=== PATIENT | male | born 1985 | race Hispanic/Latino ===

== ENCOUNTER 2019-01-13 19:08 | Inpatient (IN) | payer OTHER ==
[~2019-01-13] VITALS: Ht 182.9 cm; Wt 125.7 kg
--- OUTSIDE RECORDS SUMMARY | 2019-01-13 19:11 | XMS REPORT | Summary of Care ---
Author Author [facility] Organization [facility] Address Unknown Phone Unavailable Encounter NATALIE Gallardo(OSIEL) [id number] Date(s): 05/06/17 - 05/06/17 [facility] [address], [address] [place] [address]- [phone] Discharge Disposition: Home or Self Care Attending Physician: Joycelyn Marroquin MD Vital Signs Most recent to 1 oldest [Reference Range]: Height 182.88 cm (05/06/17 10:18 AM) Temperature Oral 98.7 DegF [96.4-99.1 DegF] (05/06/17 10:18 AM) Blood Pressure 159/105 mmHg [90-140/60-90 mmHg] *HI* (05/06/17 10:18 AM) Respiratory Rate 14 BRMIN [14-20 BRMIN] (05/06/17 10:18 AM) Peripheral Pulse 64 bpm Rate [60-100 bpm] (05/06/17 10:18 AM) Weight 127.273 kg (05/06/17 10:18 AM) Body Mass Index 38.05 m2 (05/06/17 10:18 AM) Problem List Condition Effective Dates Status Health Status Informant Benign essential Active HTN(Confirmed) Low serum vitamin Active D(Confirmed) 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(Confirmed ) Hyperlipidemia, Active mixed(Confirmed) Obesity(Confirmed) Active Annual physical Active exam(Confirmed) Thyroid disorder Active screen(Confirmed) Allergies, Adverse Reactions, Alerts Substance Reaction Severity Status NKDA Active Medications No Known Medications Results No data available for this section Immunizations Given and Recorded Vaccine Date Status Refusal Reason influenza virus vaccine, inactivated 05/06/17 Given influenza virus vaccine, inactivated 04/19/16 Given Procedures Procedure Date Related Diagnosis Body Site Diabetic retinopathy screening1 12/2016 1No retinopathy Social History Social History Type Response Substance Abuse Use: None. IV drug use: No. Drug use interferes with work/home: No. Ready to change: No. Household substance abuse concerns: No. Cessation Education Provided: No. Alcohol Current, Type Beer. Frequency: 1-2 times per year. Previous treatment: None. Alcohol use interferes with work or home: No. Drinks more than intended: No. Others hurt by drinking: No. Ready to change: No. Household alcohol concerns: No. Smoking Status Former smoker; Exposure to Tobacco Smoke None; Cigarette Smoking Last 365 Days No; Reg Smoking Cessation Counseling No Assessment and Plan No data available for this section
--- OUTSIDE RECORDS SUMMARY | 2019-01-13 19:11 | XMS REPORT | Summary of Care ---
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 Allergies, Adverse Reactions, Alerts No Known Medication Allergies Medications No data available for this section Results No data available for this section Immunizations Given and Recorded Vaccine Date Status Refusal Reason influenza virus vaccine, inactivated1 04/10/18 Given influenza virus vaccine, inactivated 05/06/17 Given influenza virus vaccine, inactivated 04/19/16 Given 1Result Comment: Patient waited 15 min with no reaction. Procedures Procedure Date Related Diagnosis Body Site Status Diabetic retinopathy screening1 12/2016 Completed Cholecystectomy Completed 1No retinopathy Social History Social History Type [...] Days No; Reg Smoking Cessation Counseling No entered on: 05/11/18 Assessment and Plan No data available for this section
--- OUTSIDE RECORDS SUMMARY | 2019-01-13 19:11 | XMS REPORT | Continuity of Care Document ---
Author Author [employer] Organization [employer] Address Unknown Phone Unavailable Care Team Providers Care Military Administrative Technician Name Role Phone IS Decisions Information [facility] Unavailable Unavailable Problems Problem Status Onset Date Classification Date Reported Comments Source E11.42 TYPE 2 DIABETES MELLITUS WITH ANGELITO Active 12/29/2017 [facility] Benign essential HTN Active Problem 11/29/2018 [facility] Low serum vitamin D Active Problem 11/29/2018 [facility] DM type 2 with diabetic peripheral neuropathy Active Problem 11/29/2018 [facility] Hyperlipidemia, mixed Active Problem 11/29/2018 [facility] Obesity Active Problem 11/29/2018 [facility] Thyroid disorder screen Active Problem 11/29/2018 [facility] Diabetes mellitus type 21 Active Problem 11/29/2018 Automatically added by Discern Expert with order of Add Problem Diabetes Type II on August 18, 2017 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 [facility] Hemorrhoids Active Problem 11/29/2018 [facility] Upper respiratory infection, viral Active Problem 11/29/2018 [facility] Hospital discharge follow-up Active Problem 11/29/2018 [facility] Medications Medication Details Route Status Patient Instructions Ordering Provider Order Date Source glimepiride 2 mg oral tablet =1 tab, PO, BID, # 180 tab, Refill(s) 1, Pharmacy: [facility] [id number] [facility] Active 06/30/[facility] atorvastatin 10 mg oral tablet 10 mg=1 tab, PO, Bedtime, # 90 tab, 1 Refill(s), Pharmacy: [facility] [id number] [facility] Active 04/10/2018 [facility] Fenofibrate 90 MG Oral Capsule 90 mg=1 cap, PO, Daily, # 90 cap, 1 Refill(s), Pharmacy: [facility] [id number] [facility] Active 04/10/2018 [facility] Metformin hydrochloride 1000 MG Oral Tablet 1,000 mg=1 tab, PO, BID-Meals, # 180 tab, 1 Refill(s) Active 04/10/2018 [facility] Mini-Pen [place] Ultra Fine 3/16 in, 31 gauge See Instructions, 4 boxes with 90 needles each box He injects 4 times a day with Tresiba Pen and Novolog Pen, # 4 box, 1 Refill(s) Active 01/02/2018 [facility] Insulin Syringes U 30 31 ga (ultra fine) 1 syr, INJ, QID- Before Meals, FOR NOVOLOG PEN AND TRESIBA PEN, # 360 syr, 1 Refill(s) Inactive 01/02/2018 [facility] glimepiride 2 mg oral tablet 2 mg=1 tab, PO, BID, # 180 tab, 1 Refill(s), Pharmacy: [facility] [id number] [facility] No Longer Active 01/02/2018 [facility] DME Addition #1 See Instructions, LANCETS TO CHECK HIS SUGARS FOUR TIMES A DAY ONE TOUCH, # 300 ea, 3 Refill(s) Active 12/24/2017 [facility] 3 ML Insulin, Aspart, Human 100 UNT/ML Cartridge [NovoLog] 5 unit, SUB-Q, TID, Before meals, # 7 ea, 1 Refill(s) Active 12/24/2017 [facility] lisinopril 20 mg oral tablet 20 mg=1 tab, PO, Daily, # 90 tab, 1 Refill(s) Active 12/24/2017 [facility] atorvastatin 40 mg oral tablet 40 mg=1 tab, PO, Bedtime, # 90 tab, 1 Refill(s) Active 12/24/2017 [facility] Fenofibrate 150 MG Oral Capsule 150 mg=1 cap, PO, Daily, # 90 cap, 1 Refill(s) Active 12/24/2017 [facility] lisinopril 20 mg oral tablet 20 mg=1 tab, PO, Daily, # 90 tab, 1 Refill(s) Inactive 12/24/2017 [facility] atorvastatin 40 mg oral tablet 40 mg=1 tab, PO, Bedtime, # 90 tab, 1 Refill(s) Inactive 12/24/2017 [facility] Vascepa 2 gm, PO, BID, 0 Refill(s) Active 12/24/2017 [facility] 3 ML insulin degludec 200 UNT/ML Pen Injector [Tresiba] 20 unit, SUB-Q, Daily, 0 Refill(s) Active 12/24/2017 [facility] Fenofibrate 160 MG Oral Tablet See Instructions, # 90 tab, TAKE 1 TABLET BY MOUTH DAILY, Pharmacy: [facility] [id number] [facility] Active 09/03/2017 [facility] Hemorrhoidal HC 25 mg rectal suppository 25 mg=1 supp, KS, BID, X 7 day, # 14 supp, 0 Refill(s) No Longer Active 08/18/2017 [facility] Mineral Oil 0.14 MG/MG / Petrolatum 0.719 MG/MG / Phenylephrine Hydrochloride 0.0025 MG/MG Rectal Ointment 1 appl, KS, BID, X 7 day, # 57 gm, 1 Refill(s) No Longer Active 08/18/2017 [facility] Hydrochlorothiazide 25 MG Oral Tablet 25 mg=1 tab, PO, Daily, # 90 tab, 1 Refill(s), [id number] Active 07/30/2017 [facility] benzonatate 200 mg oral capsule 200 mg=1 cap, PO, TID, X 10 day, # 30 cap, 0 Refill(s), Pharmacy: [facility]/pharmacy #[id number] No Longer Active 07/30/2017 [facility] ibuprofen 800 mg oral tablet 800 mg=1 tab, PO, Q8H, PRN Pain, Take with food, X 10 day, # 30 tab, 0 Refill(s), Pharmacy: [facility]/pharmacy #[id number] No Longer Active 07/30/2017 [facility] Glipizide 10 MG Oral Tablet 10 mg=1 tab, PO, BID-Before Meals, # 180 tab, 1 Refill(s), Pharmacy: [facility]/pharmacy #[id number] Active 07/30/2017 [facility] lisinopril 40 mg oral tablet 40 mg=1 tab, PO, Daily, # 90 tab, 1 Refill(s), Pharmacy: [facility]/pharmacy #[id number] Active 05/16/2017 [facility] Ergocalciferol 79756 UNT Oral Capsule 50,000 IntlUnit=1 cap, PO, Q-M and W, # 24 cap, 2 Refill(s), Pharmacy: [facility]/pharmacy #[id number] Active 05/16/2017 [facility] lisinopril 10 mg oral tablet 10 mg=1 tab, PO, Daily, # 90 tab, 1 Refill(s), [id number] Inactive 05/16/2017 [facility] metFORMIN 1000 mg oral tablet, extended release 1,000 mg=1 tab, PO, BID, # 180 tab, 1 Refill(s), [id number] Active 05/16/2017 [facility] Fenofibrate 160 MG Oral Tablet 160 mg=1 tab, PO, Daily, # 90 tab, 1 Refill(s), [id number] Active 05/16/2017 [facility] icosapent ethyl 1000 MG Oral Capsule [Vascepa] 2 gm=2 cap, PO, BID, # 360 cap, 1 Refill(s), [id number] Active 05/16/2017 [facility] Allergies, Adverse Reactions, Alerts Substance Category Reaction Severity Reaction type Status Date Reported Comments Source No Known Medication Allergies Assertion Drug allergy [facility] Immunizations Immunization Date Given Site Status Last Updated Comments Source influenza virus vaccine, inactivated<sup>1</sup> 04/10/2018 Right Deltoid completed [place] Result Comment: Patient waited 15 min with no reaction. [facility] influenza virus vaccine, inactivated 05/06/2017 Left Deltoid completed [facility] influenza virus vaccine, inactivated 04/19/2016 Right Deltoid completed [facility] Results No Data Provided for This Section Pathology Reports No Data Provided for This Section Diagnostic Reports No Data Provided for This Section Consultation Notes No Data Provided for This Section Discharge Summaries No Data Provided for This Section History and Physicals No Data Provided for This Section Vital Signs Vital Sign Value Date Comments Source BMI Calculated 37.37 05/11/2018 [facility] Weight 125 05/11/2018 [facility] Systolic (mm Hg) 134 05/11/2018 [facility] Diastolic (mm Hg) 92 05/11/2018 [facility] Height 182.88 cm 05/11/2018 [facility] Respitory Rate 16 05/11/2018 [facility] Heart Rate 85 05/11/2018 [facility] Height 182.88 cm 04/10/2018 [facility] Weight 121.818 04/10/2018 [facility] BMI Calculated 36.42 04/10/2018 [facility] Temperature Oral (F) 98.3 F 04/10/2018 [facility] Respitory Rate 14 04/10/2018 [facility] Heart Rate 69 04/10/2018 [facility] Systolic (mm Hg) 136 04/10/2018 [facility] Diastolic (mm Hg) 85 04/10/2018 [facility] BMI Calculated 36.47 01/02/2018 [facility] Heart Rate 86 01/02/2018 [facility] Respitory Rate 14 01/02/2018 [facility] Temperature Oral (F) 98.8 F 01/02/2018 [facility] Weight 121.989 01/02/2018 [facility] Systolic (mm Hg) 150 01/02/2018 [facility] Diastolic (mm Hg) 86 01/02/2018 [facility] Height 182.88 cm 01/02/2018 [facility] Weight 120.966 12/24/2017 [facility] Height 182.88 cm 12/24/2017 [facility] BMI Calculated 36.17 12/24/2017 [facility] Respitory Rate 14 12/24/2017 [facility] Heart Rate 82 12/24/2017 [facility] Systolic (mm Hg) 145 12/24/2017 [facility] Diastolic (mm Hg) 89 12/24/2017 [facility] Temperature Oral (F) 98.7 F 12/24/2017 [facility] BMI Calculated 35.34 08/18/2017 [facility] Weight 118.182 08/18/2017 [facility] Height 182.88 cm 08/18/2017 [facility] Respitory Rate 14 08/18/2017 [facility] Heart Rate 100 08/18/2017 [facility] Systolic (mm Hg) 131 08/18/2017 [facility] Diastolic (mm Hg) 94 08/18/2017 [facility] Temperature Oral (F) 99.8 F 08/18/2017 [facility] Weight 122.898 07/30/2017 [facility] BMI Calculated 36.75 07/30/2017 [facility] Height 182.88 cm 07/30/2017 [facility] Heart Rate 109 07/30/2017 [facility] Respitory Rate 14 07/30/2017 [facility] Temperature Oral (F) 98.7 F 07/30/2017 [facility] Systolic (mm Hg) 149 07/30/2017 [facility] Diastolic (mm Hg) 96 07/30/2017 [facility] Height 182.88 cm 05/16/2017 [facility] Weight 129.261 05/16/2017 [facility] BMI Calculated 38.65 05/16/2017 [facility] Systolic (mm Hg) 149 05/16/2017 [facility] Diastolic (mm Hg) 88 05/16/2017 [facility] Temperature Oral (F) 100.0 F 05/16/2017 [facility] Respitory Rate 14 05/16/2017 [facility] Heart Rate 90 05/16/2017 [facility] BMI Calculated 38.05 05/06/2017 [facility] Weight 127.273 05/06/2017 [facility] Height 182.88 cm 05/06/2017 [facility] Temperature Oral (F) 98.7 F 05/06/2017 [facility] Systolic (mm Hg) 159 05/06/2017 [facility] Diastolic (mm Hg) 105 05/06/2017 [facility] Respitory Rate 14 05/06/2017 [facility] Heart Rate 64 05/06/2017 [facility] Encounters Location Location Details Encounter Type Encounter Number Reason For Visit Attending Provider ADM Date DC Date Status Source Outpatient [id number] JOYCELYN STOCKTON 04/19/2016 Active [facility] Outpatient [id number] JOYCELYN STOCKTON 04/26/2016 Active [facility] Outpatient [id number] JOYCELYN STOCKTON 05/30/2016 Active [facility] Outpatient [id number] JOYCELYN STOCKTON 08/02/2016 Active [facility] Outpatient [id number] JOYCELYN STOCKTON 11/01/2016 Active [facility] Outpatient [id number] JOYCELYN STOCKTON 02/21/2017 Active [facility] Outpatient [id number] JOYCELYN STOCKTON 05/06/2017 Active [facility] Outpatient [id number] Joycelyn Buchanan 05/06/2017 05/07/2017 [facility] Outpatient [id number] JOYCELYN STOCKTON 05/16/2017 Active [facility] Outpatient [id number] Joycelyn Buchanan 05/16/2017 05/17/2017 [facility] Outpatient [id number] JOE RIOS 06/06/2017 Active [facility] Ambulatory Pre-Reg [id number] Joe Rios 06/06/2017 06/06/2017 [facility] Outpatient [id number] JOYCELYN STOCKTON 07/30/2017 Active [facility] Outpatient [id number] Joycelyn Buchanan 07/30/2017 07/31/2017 [facility] Outpatient [id number] JOYCELYN STOCKTON 08/18/2017 Active [facility] Outpatient [id number] Joycelyn Buchanan 08/18/2017 08/19/2017 [facility] Primary [facility] Phone Message [id number] 08/19/2017 08/21/2017 [facility] Outpatient [id number] JOYCELYN STOCKTON 09/12/2017 Active [facility] Ambulatory Pre-Reg [id number] Joycelyn Buchanan 09/12/2017 09/12/2017 [facility] Outpatient [id number] JOE WARNERANDER 12/05/2017 Active [facility] Ambulatory Pre-Reg [id number] Joe Warnerander 12/05/2017 12/05/2017 [facility] Outpatient [id number] JOYCELYN STOCKTON 12/24/2017 Active [facility] Outpatient [id number] Joycelyn Buchanan 12/24/2017 12/25/2017 [facility] Outpatient [id number] JOYCELYN STOCKTON 12/25/2017 Active [facility] Ambulatory Pre-Reg [id number] Joycelyn Buchanan 12/25/2017 12/25/2017 [facility] Outpatient [id number] JOYCELYN STOCKTON 01/02/2018 Active [facility] Outpatient [id number] Joycelyn Buchanan 01/02/2018 01/03/2018 [facility] [id number] Joycelyn Buchanan 01/16/2018 01/16/2018 [facility] Outpatient [id number] JOYCELYN STOCKTON 04/10/2018 Active [facility] Outpatient [id number] Joycelyn Buchanan 04/10/2018 04/11/2018 [facility] Outpatient [id number] JOYCELYN STOCKTON 05/06/[address] [facility] Ambulatory Pre-Reg [id number] Joycelyn Avilesshanelopez Buchanan 05/06/2018 05/06/2018 [facility] Outpatient [id number] JOYCELYN AVILESJOHAN 05/11/[address] [facility] Outpatient [id number] Joycelyn Buchanan 05/11/2018 05/12/2018 [facility] Outpatient [id number] JOYCELYN MAHIN 08/07/2018 [facility] Procedures Procedure Code Date Perfomer Comments Source Diabetic retinopathy screening<sup>1</sup> 170338931 12/14/2016 [facility] retinopathy [facility] Diabetic retinopathy screening<sup>1</sup> [id number] 12/14/2016 No retinopathy [facility] Cholecystectomy [id number] [facility] Cholecystectomy [id number] [facility] Assessment and Plan No Data Provided for This Section Plan of Care No Data Provided for This Section Social History Social History Date Source Social History TypeResponse Substance Abuse Use: None. IV drug use: [...] Smoking Cessation Counseling No entered on: 05/11/18 08/02/2016 [facility] Social History TypeResponse Substance Abuse Use: None. IV drug use: [...] Smoking Cessation Counseling No entered on: 05/11/18 08/02/2016 [facility] Family History No Data Provided for This Section Advance Directives No Data Provided for This Section Functional Status No Data Provided for This Section
--- OUTSIDE RECORDS SUMMARY | 2019-01-13 19:11 | XMS REPORT | Summary of Care ---
Author Author [facility] Organization [facility] Address Unknown Phone Unavailable Encounter NATALIE Gallardo(OSIEL) [id number] Date(s): 05/16/17 - 05/16/17 [facility] [address], [address] [place] [address]- [phone] Discharge Disposition: Home or Self Care Attending Physician: Joycelyn Marroquin MD Vital Signs Most recent to 1 oldest [Reference Range]: Height 182.88 cm (05/16/17 12:20 PM) Temperature Oral 100.0 DegF [96.4-99.1 DegF] *HI* (05/16/17 12:20 PM) Blood Pressure 149/88 mmHg [90-140/60-90 mmHg] *HI* (05/16/17 12:20 PM) Respiratory Rate 14 BRMIN [14-20 BRMIN] (05/16/17 12:20 PM) Peripheral Pulse 90 bpm Rate [60-100 bpm] (05/16/17 12:20 PM) Weight 129.261 kg (05/16/17 12:20 PM) Body Mass Index 38.65 m2 (05/16/17 12:20 PM) Problem List Condition Effective Dates Status Health Status Informant Benign essential Active HTN(Confirmed) Low serum vitamin Active D(Confirmed) 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(Confirmed ) Hyperlipidemia, Active mixed(Confirmed) Obesity(Confirmed) Active Annual physical Active exam(Confirmed) Thyroid disorder Active screen(Confirmed) Allergies, Adverse Reactions, Alerts Substance Reaction Severity Status NKDA Active Medications ergocalciferol 50,000 intl units oral capsule 50,000 IntlUnit=1 cap, PO, Q-M and W, # 24 cap, 2 Refill(s), Pharmacy: [id number] Start Date: 05/16/17 Stop Date: 01/23/18 Status: Ordered fenofibrate 160 mg oral tablet 160 mg=1 tab, PO, Daily, # 90 tab, 1 Refill(s), [id number] Start Date: 05/16/17 Stop Date: 11/12/17 Status: Ordered lisinopril 10 mg oral tablet 10 mg=1 tab, PO, Daily, # 90 tab, 1 Refill(s), [id number] Start Date: 05/16/17 Stop Date: 05/16/17 Status: Discontinued lisinopril 40 mg oral tablet 40 mg=1 tab, PO, Daily, # 90 tab, 1 Refill(s), [id number] Start Date: 05/16/17 Stop Date: 11/12/17 Status: Ordered metFORMIN 1000 mg oral tablet, extended release 1,000 mg=1 tab, PO, BID, # 180 tab, 1 Refill(s), [id number] Start Date: 05/16/17 Stop Date: 11/12/17 Status: Ordered Vascepa 1 g oral capsule 2 gm=2 cap, PO, BID, # 360 cap, 1 Refill(s), [id number] Start Date: 05/16/17 Stop Date: 11/12/17 Status: Ordered Results No data available for this section [...]
--- OUTSIDE RECORDS SUMMARY | 2019-01-13 19:11 | XMS REPORT | Summary of Care ---
Author Author [facility] Organization [facility] Address Unknown Phone Unavailable Encounter HQ Ewantr_alishi(FIN) [id number] Date(s): 08/19/17 - 08/20/17 [facility] [address], [address] [place] [address]- [phone] Vital Signs No data available for this section Problem List Condition Effective Dates Status Health Status Informant Benign essential Active HTN(Confirmed) Low serum vitamin Active D(Confirmed) Diabetes mellitus Active type 2(Confirmed)1 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(Confirmed ) Hemorrhoids(Confirme Active d) Hyperlipidemia, Active mixed(Confirmed) Obesity(Confirmed) Active Annual physical Active exam(Confirmed) Thyroid disorder Active screen(Confirmed) Upper respiratory Active infection, viral(Confirmed) 1Automatically added by Discern Expert with order of Add Problem Diabetes Type II on August 18, 2017 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 Allergies, Adverse Reactions, Alerts Substance Reaction Severity Status NKDA Active Medications No data available for this section Results No data available for this section Immunizations Given and Recorded Vaccine Date Status Refusal Reason influenza virus vaccine, inactivated 05/06/17 Given influenza virus vaccine, inactivated 04/19/16 Given Procedures Procedure Date Related Diagnosis Body Site Status Diabetic retinopathy screening1 12/2016 Completed 1No retinopathy Social History Social History [...] Reg Smoking Cessation Counseling No entered on: 08/18/17 Assessment and Plan No data available for this section
--- OUTSIDE RECORDS SUMMARY | 2019-01-13 19:11 | XMS REPORT | Clinical Summary ---
Author Author [facility] Address Unknown Phone Unavailable Care Team Providers Care Hand Potter Name Role Phone PCP Unavailable Allergies No Known Allergies Medications End Date Status Medication Sig Dispensed Refills Start Date Active lisinopril Take 40 mg by 0 (PRINIVIL,ZESTRIL) 40 MG mouth daily. tablet Active fenofibrate Take 160 mg 0 (TRIGLIDE,LOFIBRA) 160 MG by mouth tablet daily. Active insulin aspart U-100 Inject 0.05 4.5 mL 2 (NOVOLOG) 100 unit/mL mLs (5 Units 8 InPnIndications: Type 2 total) diabetes mellitus treated subcutaneousl with insulin ([facility]) y 3 (three) times daily before meals. Active needles, insulin Inject 1 1 box 11 disposable (INSULIN PEN Syringe 8 NEEDLES) NdleIndications: subcutaneousl Type 2 diabetes mellitus y 4 (four) treated with insulin times daily. ([facility]) Active lancets MiscIndications: Use as 200 each 4 Type 2 diabetes mellitus directed to 8 treated with insulin check blood ([facility]) sugar.. Active blood sugar diagnostic Check blood 200 strip 4 (ONETOUCH ULTRA TEST) sugar five 8 StrpIndications: Type 2 times daily diabetes mellitus treated as directed.. with insulin ([facility]) Active insulin degludec 100 Inject 20 2 Syringe 2 unit/mL (3 mL) Units 8 InPnIndications: Type 2 subcutaneousl diabetes mellitus treated y daily. with insulin ([facility]) Active atorvastatin (LIPITOR) 40 Take 1 tablet 90 tablet 3 MG tabletIndications: (40 mg total) 8 Type 2 diabetes mellitus by mouth treated with insulin nightly. ([facility]), Dyslipidemia Active omega-3 fatty acids-fish Take 2 0 oil 340-1,000 mg Cap per capsules (2 g 8 capsuleIndications: total) by Hypertriglyceridemia mouth 2 (two) times daily. 12/19/2018 blood-glucose meter Use as 1 each 0 (GLUCOSE MONITORING KIT) instructed. 8 kitIndications: Type 2 diabetes mellitus treated with insulin ([facility]) Active Problems Problem Noted Date Hypertriglyceridemia 12/19/2017 Metabolic syndrome 12/19/2017 Class 2 obesity in adult 12/19/2017 High anion gap metabolic acidosis 12/17/2017 Lactic acidosis 12/17/2017 Hypokalemia 12/17/2017 Diabetic ketoacidosis without coma associated with type 2 diabetes mellitus 12/16/2017 Social History Date Tobacco Use Types Packs/Day Years Used Light Tobacco Smoker Smokeless Tobacco: Current User Alcohol Use Drinks/Week oz/Week Comments No Sex Assigned at Date Recorded Not on file Industry Job Start Date Occupation Not on file Not on file Not on file Travel End Travel History Travel Start No recent travel history available. Last Filed Vital Signs Not on file Plan of Treatment Not on file Results Not on fileafter 01/12/2018 Insurance Payer Benefit Subscriber ID Type Phone Address Plan / Group BLUE CROSS/BLUE SHIELD BCBS PPO xxxxxxxxxxxx PPO [phone] [address] [place] [address] CHOICE Advance Directives For more information, please contact: [facility] [address] [place] [address] Date Inactivated Comments Code Status Date Activated 12/19/2017 1:23 PM Full Code 12/16/2017 8:01 PM This code status was determined by: Patient
--- OUTSIDE RECORDS SUMMARY | 2019-01-13 19:11 | XMS REPORT | Summary of Care ---
Author Author [facility] Organization [facility] Address Unknown Phone Unavailable Encounter NATALIE Gallardo(OSIEL) [id number] Date(s): 07/30/17 - 07/30/17 [facility] [address], [address] [place] [address]- [phone] Discharge Disposition: Home or Self Care Attending Physician: Joycelyn Marroquin MD Vital Signs Most recent to 1 oldest [Reference Range]: Height 182.88 cm (07/30/17 9:27 AM) Temperature Oral 98.7 DegF [96.4-99.1 DegF] (07/30/17 9:27 AM) Blood Pressure 149/96 mmHg [90-140/60-90 mmHg] *HI* (07/30/17 9:27 AM) Respiratory Rate 14 BRMIN [14-20 BRMIN] (07/30/17 9:27 AM) Peripheral Pulse 109 bpm Rate [60-100 bpm] *HI* (07/30/17 9:27 AM) Weight 122.898 kg (07/30/17 9:27 AM) Body Mass Index 36.75 m2 (07/30/17 9:27 AM) Problem List Condition Effective Dates Status [...] 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 Allergies, Adverse Reactions, Alerts Substance Reaction Severity Status NKDA Active Medications benzonatate 200 mg oral capsule 200 mg=1 cap, PO, TID, X 10 day, # 30 cap, 0 Refill(s), [id number] Start Date: 07/30/17 Stop Date: 08/09/17 Status: Completed glipiZIDE 10 mg oral tablet 10 mg=1 tab, PO, BID-Before Meals, # 180 tab, 1 Refill(s), [id number] Start Date: 07/30/17 Stop Date: 01/26/18 Status: Ordered hydrochlorothiazide 25 mg oral tablet 25 mg=1 tab, PO, Daily, # 90 tab, 1 Refill(s), [id number] Start Date: 07/30/17 Stop Date: 01/26/18 Status: Ordered ibuprofen 800 mg oral tablet 800 mg=1 tab, PO, Q8H, PRN Pain, Take with food, X 10 day, # 30 tab, 0 Refill(s) , [id number] Start Date: 07/30/17 Stop Date: 08/09/17 Status: Completed Results No data available for this section [...]
--- OUTSIDE RECORDS SUMMARY | 2019-01-13 19:11 | XMS REPORT | Clinical Summary ---
Author Author [facility] Address Unknown Phone Unavailable Care Team Providers Care Corrugator Supervisor Name Role Phone Asked, No Pcp PCP Unavailable Allergies No Known Allergies Medications End Date Status Medication Sig Dispensed Refills Start Date 02/12/2019 Active famotidine (PEPCID) 20 MG Take 1 tablet 60 tablet 0 tablet (20 mg total) 9 by mouth 2 (two) times a day for 30 days. Active ondansetron ODT (ZOFRAN Take 1 tablet 20 tablet 0 ODT) 4 MG disintegrating (4 mg total) 9 tablet by mouth every 8 (eight) hours as needed for nausea or vomiting for up to 30 doses. Active Problems Not on file Encounters Care Team Description Date Type Specialty Kirt Roy DO Hyperglycemia (Primary Dx); Dehydration; Ketosis (HCC) 01/13/2019 Emergency Emergency Medicine after 01/12/2018 Social History Date Tobacco Use Types Packs/Day Years Used Never Assessed Sex Assigned at Date Recorded Not on file Industry Job Start Date Occupation Not on file Not on file Not on file Travel End Travel History Travel Start No recent travel history available. Last Filed Vital Signs Time Taken Vital Sign Reading 01/13/2019 1:05 PM CDT Blood Pressure 163/95 01/13/2019 1:05 PM CDT Pulse 87 01/13/2019 1:05 PM CDT Temperature 37.6 C (99.6 F) 01/13/2019 1:05 PM CDT Respiratory Rate 18 01/13/2019 1:05 PM CDT Oxygen Saturation 98% - Inhaled Oxygen - Concentration 01/13/2019 1:10 PM CDT Weight 122 kg (270 lb) 01/13/2019 1:10 PM CDT Height 182.9 cm (6') 01/13/2019 1:10 PM CDT Body Mass Index 36.62 Plan of Treatment Not on file Procedures Comments Procedure Name Priority Date/Time Associated Diagnosis BETA HYDROXYBUTYRATE STAT 01/13/2019 3:07 PM CDT VENOUS BLOOD GAS STAT 01/13/2019 3:07 PM CDT ESTIMATED GFR STAT 01/13/2019 1:40 PM CDT LIPASE LEVEL STAT 01/13/2019 1:40 PM CDT COMPREHENSIVE METABOLIC STAT 01/13/2019 PANEL 1:40 PM CDT CBC WITH PLATELET AND STAT 01/13/2019 DIFFERENTIAL 1:40 PM CDT URINALYSIS SCREEN AND STAT 01/13/2019 MICROSCOPY, WITH REFLEX 1:27 PM CDT TO CULTURE URINE CULTURE STAT 01/13/2019 1:27 PM CDT after 01/12/2018 Results * Beta hydroxybutyrate (01/13/2019 3:07 PM CDT) Beta 3.54 (H) 0.02 - 0.27 mmol/L [facility] Specimen Blood Performing Organization Address City/State/Zipcode Phone Number [facility] DEPARTMENT OF [address] [place] [address] PATHOLOGY AND GENOMIC MEDICINE [facility] [address] [place] [address] HOSPITAL * Venous blood gas (01/13/2019 3:07 PM CDT) Projector Booth Operator [id number] [facility] O2 therapy ROOM [facility] pH, venous 7.344 7.320 - 7.420 units [facility] pCO2, venous 45.9 45.0 - 51.0 mmHg [facility] pO2, venous 16.4 (L) 25.0 - 40.0 mmHg [facility] O2 saturation, 24.8 (LL) 40.0 - 70.0 % AN[place]ELA venous Comment: [facility] Results called to and read [place] back by [facility] (name/location) at07/ 15:16 (date/time) by _[facility]. Base excess, -0.7 -2.0 - 2.0 mEq/L [place] venous [facility] Bicarbonate 25.0 21.0 - 28.0 mEq/L [facility] O2 content 5.3 VOL% [facility] FiO2, inspired 21.0 % ANGELA O2% [facility] Carboxyhemoglob 1.5 (H) 0.0 - 1.4 % ANGELA in Comment: [facility] Reference Ranges: [place] Carboxyhemoglobin [facility] Non smoker: 0.0 - 2.0% Smoker: 2.1 - 5.0% Heavy smoker: 5.1 - 9% Methemoglobin 1.3 (H) 0.0 - 1.0 % [facility] Hemoglobin, 15.7 14.0 - 18.0 g/dL ANGELA blood gas [facility] Specimen Blood Performing Organization Address City/[facility] Phone Number [facility] [address] [place] [phone] PATHOLOGY AND GENOMIC MEDICINE [address] * Estimated GFR (01/13/2019 1:40 PM CDT) Estimated GFR >=90 mL/min/1.73 m2 [place]ELA Comment: [facility] G1 >=90 Normal or high G2 60-89Mildly decreased [id number] Mildly to moderately decreased [id number] Moderately to severely decreased G4 15-29Severely decreased G5 <15Kidney failure The eGFR was calculated using the Chronic Kidney Disease Epidemiology Collaboration (CKD-EPI) equation. Interpretation is based on recommendations of the National Kidney Foundation-Kidney Disease Outcomes Quality Initiative (NKF-KDOQI) published in 2014. Specimen Plasma specimen Narrative Performed At SPECIMEN >4+ LIPEMIA HAD TO BE ULTRACENTRIFUGED [facility] DEPARTMENT OF PATHOLOGY AND GENOMIC MEDICINE Performing Organization Address City/State/Zipcode Phone Number [facility] [address] [facility] [place] [address] PATHOLOGY AND GENOMIC MEDICINE [facility] [place] [address] * CBC with platelet and differential (01/13/2019 1:40 PM CDT) WBC 12.1 (H) 4.2 - 11.0 k/uL [facility] RBC 4.86 4.04 - 5.86 m/uL [facility] HGB 15.6 13.0 - 17.3 g/dL [facility] HCT 42.3 34.0 - 45.0 % [facility] MCV 87.0 80.0 - 98.0 fL [facility] MCH 32.1 27.0 - 34.0 pg [facility] MCHC 36.9 (H) 31.5 - 36.5 g/dL [facility] RDW - SD 39.0 37.0 - 51.0 fL [facility] MPV 11.6 (H) 7.4 - 10.4 fL [facility] Platelet count 246 150 - 400 k/uL [facility] Nucleated RBC 0.00 /100 WBC [facility] Neutrophils 80.3 (H) 36.0 - 66.0 % [facility] Lymphocytes 12.1 (L) 24.0 - 44.0 % [facility] Monocytes 6.1 (H) 0.0 - 6.0 % [facility] Eosinophils 0.5 0.0 - 6.0 % [facility] Basophils 0.3 0.0 - 1.2 % [facility] Immature 0.7 0.0 - 1.0 % ANGELA granulocytes [facility] Specimen Blood Performing Organization Address City/State/Zipcode Phone Number [facility] DEPARTMENT OF [facility] [place] [address] PATHOLOGY AND GENOMIC MEDICINE [facility] [address] * Lipase level (01/13/2019 1:40 PM CDT) Pathologist [facility] Lipase 74 (H) 13 - 60 U/L [facility] Specimen Plasma specimen Narrative Performed At SPECIMEN >4+ LIPEMIA HAD TO BE ULTRACENTRIFUGED [facility] DEPARTMENT OF PATHOLOGY AND GENOMIC MEDICINE Performing Organization Address City/[facility]/Zipcode Phone Number [facility] DEPARTMENT OF [address] [place] [address] PATHOLOGY AND GENOMIC MEDICINE [place] [address] [place] [address] HOSPITAL * Comprehensive metabolic panel (01/13/2019 1:40 PM CDT) Sodium 132 (L) 135 - 150 mEq/L [facility] Potassium 4.2 3.5 - 5.0 mEq/L [facility] Chloride 91 (L) 98 - 112 mEq/L [facility] CO2 18 (L) 24 - 31 mmol/L [facility] Anion gap 23@ANIO (H) 7 - 15 mEq/L [facility] BUN 9 7 - 18 mg/dL [facility] Creatinine 0.80 0.70 - 1.20 mg/dL [facility] Glucose 259 (H) 65 - 100 mg/dL [facility] Calcium 10.4 (H) 8.3 - 10.2 mg/dL [facility] Protein 8.4 (H) 6.3 - 8.3 g/dL [facility] Albumin 4.0 3.5 - 5.0 g/dL [facility] A/G ratio 0.9 0.7 - 3.8 [facility] Alkaline 62 0 - 129 U/L AN[place]ELA phosphatase [facility] AST 30 10 - 50 U/L [facility] ALT 27 5 - 50 U/L [facility] Total bilirubin 0.9 0.2 - 1.2 mg/dL [facility] Specimen Plasma specimen Narrative Performed At SPECIMEN >4+ LIPEMIA HAD TO BE ULTRACENTRIFUGED [facility] DEPARTMENT OF PATHOLOGY AND GENOMIC MEDICINE Performing Organization Address City/State/Zipcode Phone Number [facility] DEPARTMENT OF [address] [address] PATHOLOGY AND GENOMIC MEDICINE [facility] [address] [place] [address] HOSPITAL * Urinalysis screen and microscopy, with reflex to culture (01/13/2019 1:27 PM CDT) Specimen site Clean catch [facility] Color, UA Yellow [facility] Appearance, UA Clear [facility] Specific 1.036 (H) 1.001 - 1.035 ANGELA gravity, UA [facility] pH, UA 6.0 5.0 - 8.5 [facility] Protein, UA 2+ (A) Negative [facility] Glucose, UA 3+ (A) Negative [facility] Ketones, UA 2+ (A) Negative [facility] Bilirubin, UA Negative Negative [facility] Blood, UA Negative Negative [facility] Nitrite, UA Negative Negative [facility] Urobilinogen, Negative <2.0 [facility] Leukocyte Negative Negative ANGELA esterase, [facility] WBC, UA 1 0 - 1 /HPF [facility] RBC, UA 3 0 - 5 /HPF [facility] Bacteria, UA None seen None seen [facility] Yeast, UA None seen [facility] Yeast with None seen [facility]yphaeMETHODIST [facility] Granular casts, 3 (H) 0 - 1 /LPF [facility] Specimen Urine Performing Organization Address City/State/Zipcode Phone Number [facility] DEPARTMENT [facility] [place] [phone] PATHOLOGY AND GENOMIC MEDICINE [place] [address] [place] [address] HOSPITAL * Urine culture (01/13/2019 1:27 PM CDT) Urine culture SEE COMMENTComment: ANGELA Bacteriuria screen negative. [facility] Specimen Urine Performing Organization Address City/[facility]/Zipcode Phone Number [facility] OF [facility] [place] [phone] PATHOLOGY AND GENOMIC MEDICINE [facility] [place] [address] [place] [phone] HOSPITAL after 01/12/2018 Insurance Type Payer Benefit Subscriber ID Effective Phone Address Plan / Dates Group POS AETDEO MARKS xxxxxxxxxx 2019- [employer] Present [facility] POS Advance Directives Patient has advance care planning documents on file. For more information, elmira hampton contact: Yaakov Gilmore [address] [place] [address]
--- OUTSIDE RECORDS SUMMARY | 2019-01-13 19:11 | XMS REPORT | Summary of Care ---
Author Author [facility] Organization [facility] Address Unknown Phone Unavailable Encounter NATALIE Gallardo(OSIEL) [id number] Date(s): 05/11/18 - 05/11/18 [facility] [address] [address]- Discharge Disposition: Home or Self Care Attending Physician: Joycelyn Marroquin MD Vital Signs Most recent to 1 oldest [Reference Range]: Height 182.88 cm (05/11/18 10:53 AM) Blood Pressure 134/92 mmHg [90-140/60-90 mmHg] (05/11/18 10:53 AM) Respiratory Rate 16 BRMIN [14-20 BRMIN] (05/11/18 10:53 AM) Peripheral Pulse 85 bpm Rate [60-100 bpm] (05/11/18 10:53 AM) Weight 125 kg (05/11/18 10:53 AM) Body Mass Index 37.37 m2 (05/11/18 10:53 AM) Problem List Condition Effective Dates Status [...] 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 Allergies, Adverse Reactions, Alerts No Known Medication Allergies Medications No Known Medications Results No data [...]
--- OUTSIDE RECORDS SUMMARY | 2019-01-13 19:11 | XMS REPORT | Summary of Care ---
Author Author [facility] Organization [facility] Address Unknown Phone Unavailable Encounter NATALIE Gallardo(OSIEL) [id number] Date(s): 08/18/17 - 08/18/17 [facility] [address], [address] [place] [address]- [phone] Discharge Disposition: Home or Self Care Attending Physician: Joycelyn Marroquin MD Vital Signs Most recent to 1 oldest [Reference Range]: Height 182.88 cm (08/18/17 3:51 PM) Temperature Oral 99.8 DegF [96.4-99.1 DegF] *HI* (08/18/17 3:51 PM) Blood Pressure 131/94 mmHg [90-140/60-90 mmHg] (08/18/17 3:51 PM) Respiratory Rate 14 BRMIN [14-20 BRMIN] (08/18/17 3:51 PM) Peripheral Pulse 100 bpm Rate [60-100 bpm] (08/18/17 3:51 PM) Weight 118.182 kg (08/18/17 3:51 PM) Body Mass Index 35.34 m2 (08/18/17 3:51 PM) Problem List Condition Effective Dates Status [...] 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 Allergies, Adverse Reactions, Alerts Substance Reaction Severity Status NKDA Active Medications fenofibrate 160 mg oral tablet See Instructions, # 90 tab, TAKE 1 TABLET BY MOUTH DAILY, Pharmacy: [facility] [id number] [facility] Start Date: 09/03/17 Status: Ordered Hemorrhoidal HC 25 mg rectal suppository 25 mg=1 supp, GA, BID, X 7 day, # 14 supp, 0 Refill(s) Start Date: 08/18/17 Stop Date: 08/25/17 Status: Completed mineral oil/petrolatum/phenylephrine 14%-71.9%-0.25% rectal ointment 1 appl, GA, BID, X 7 day, # 57 gm, 1 Refill(s) Start Date: 08/18/17 Stop Date: 09/01/17 Status: Completed Results No data available for [...]
--- OUTSIDE RECORDS SUMMARY | 2019-01-13 19:11 | XMS REPORT | Summary of Care ---
Author Author [facility] Organization [facility] Address Unknown Phone Unavailable Encounter HQ Virgier_sascha(FIN) [id number] Date(s): 06/06/17 - 06/06/17 [facility] [address] [place], [place] [address] Attending Physician: Joe Rios MD Vital Signs No data available for [...]
--- OUTSIDE RECORDS SUMMARY | 2019-01-13 19:11 | XMS REPORT | Summary of Care ---
Author Author [facility] Organization [facility] Address Unknown Phone Unavailable Encounter NATALIE Gallardo(OSIEL) [id number] Date(s): 04/10/18 - 04/10/18 [facility] [address] [address]- Discharge Disposition: Home or Self Care Attending Physician: Joycelyn Marroquin MD Vital Signs Most recent to 1 oldest [Reference Range]: Height 182.88 cm (04/10/18 9:27 AM) Temperature Oral 98.3 DegF [96.4-99.1 DegF] (04/10/18 9:27 AM) Blood Pressure 136/85 mmHg [90-140/60-90 mmHg] (04/10/18 9:27 AM) Respiratory Rate 14 BRMIN [14-20 BRMIN] (04/10/18 9:27 AM) Peripheral Pulse 69 bpm Rate [60-100 bpm] (04/10/18 9:27 AM) Weight 121.818 kg (04/10/18 9:27 AM) Body Mass Index 36.42 m2 (04/10/18 9:27 AM) Problem List Condition Effective Dates [...] 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 Allergies, Adverse Reactions, Alerts No Known Medication Allergies Medications atorvastatin 10 mg oral tablet 10 mg=1 tab, PO, Bedtime, # 90 tab, 1 Refill(s), Pharmacy: [facility] [id number] [facility] Start Date: 04/10/18 Stop Date: 10/07/18 Status: Ordered fenofibrate 90 mg oral capsule 90 mg=1 cap, PO, Daily, # 90 cap, 1 Refill(s), Pharmacy: [facility] [id number] [facility] Start Date: 04/10/18 Stop Date: 10/07/18 Status: Ordered metFORMIN 1000 mg oral tablet 1,000 mg=1 tab, PO, BID-Meals, # 180 tab, 1 Refill(s) Start Date: 04/10/18 Status: Ordered Results No data available for [...]
--- OUTSIDE RECORDS SUMMARY | 2019-01-13 19:11 | XMS REPORT | Summary of Care ---
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 Allergies, Adverse Reactions, [...]
--- OUTSIDE RECORDS SUMMARY | 2019-01-13 19:11 | XMS REPORT | Summary of Care ---
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 Allergies, Adverse Reactions, Alerts Substance Reaction [...]
--- OUTSIDE RECORDS SUMMARY | 2019-01-13 19:12 | XMS REPORT | Summary of Care ---
Author Author [facility] Organization [facility] Address Unknown Phone Unavailable Encounter NATALIE Gallardo(OSIEL) [id number] Date(s): 01/02/18 - 01/02/18 [facility] [address], [address] [place] [address]- [phone] Discharge Disposition: Home or Self Care Attending Physician: Joycelyn Marroquin MD Vital Signs Most recent to 1 oldest [Reference Range]: Height 182.88 cm (01/02/18 11:17 AM) Temperature Oral 98.8 DegF [96.4-99.1 DegF] (01/02/18 11:17 AM) Blood Pressure 150/86 mmHg [90-140/60-90 mmHg] *HI* (01/02/18 11:17 AM) Respiratory Rate 14 BRMIN [14-20 BRMIN] (01/02/18 11:17 AM) Peripheral Pulse 86 bpm Rate [60-100 bpm] (01/02/18 11:17 AM) Weight 121.989 kg (01/02/18 11:17 AM) Body Mass Index 36.47 m2 (01/02/18 11:17 AM) Problem List Condition Effective Dates Status [...] Type II on August 18, 2017 16:29:17 [employer] with order ID: [id number] entered by Joycelyn Marroquin. Allergies, Adverse Reactions, Alerts Substance Reaction Severity Status NKDA Active Medications glimepiride 2 mg oral tablet 2 mg=1 tab, PO, BID, # 180 tab, 1 Refill(s), Pharmacy: [facility] [id number] [facility] Start Date: 01/02/18 Stop Date: 06/30/18 Status: Completed glimepiride 2 mg oral tablet =1 tab, PO, BID, # 180 tab, Refill(s) 1, Pharmacy: [facility] [id number] [facility] Start Date: 06/30/18 Status: Ordered Insulin Syringes U 30 31 ga (ultra fine) 1 syr, INJ, QID-Before Meals, FOR NOVOLOG PEN AND TRESIBA PEN, # 360 syr, 1 Refi ll(s) Start Date: 01/02/18 Stop Date: 01/02/18 Status: Discontinued Mini-Pen Central Ultra Fine /16 in, 31 gauge See Instructions, 4 boxes with 90 needles each box He injects 4 times a day with Tresiba Pen and Novolog Pen, # 4 box, 1 Refill(s) Start Date: 01/02/18 Status: Ordered Results No data available for [...]
--- OUTSIDE RECORDS SUMMARY | 2019-01-13 19:12 | XMS REPORT ---
[facility] Address Unknown Phone Unavailable Care Team Providers Care Streetcar Dispatcher Name Role Phone AUNG BLEDSOE Unavailable Unavailable Problems This patient has no known problems. Allergies, Adverse Reactions, Alerts This patient has no known allergies or adverse reactions. Medications This patient has no known medications. Results Test Description Test Time Test Comments Text Results Atomic Results Result Comments MISCELLANEOUS LAB ORDER 2017-12-29 10:26:00 SCAN RESULT (test abbr=[id number]) BLOOD [id number] 00:00:00* Test Item Value Reference Range Comments CULTURE (BEAKER) (test caew=0461) No growth in 5 days BLOOD [id number] 00:00:00* Test Item Value Reference Range Comments CULTURE (BEAKER) (test dhlm=6716) No growth in 5 days URINE [id number] 10:15:00* Test Item Value Reference Range Comments CULTURE (BEAKER) (test smee=1089) <10,000 col/mL skin fozia [id number] 08:24:00* Test Item Value Reference Range Comments TRIGLYCERIDES (BEAKER) (test pjiz=570) 2212 mg/dL Specimen slightly hemolyzed TRIGLYCERIDE REFERENCE RANGELow Risk <150Borderline Risk 150-199High Risk 200- 499Very High Risk >=500Specimen moderately lipemicPOCT-GLUCOSE [id number] 07:56:00* Test Item Value Reference Range Comments POC-GLUCOSE METER (BEAKER) (test hzke=0487) 188 mg/dL 70-110 TESTED AT [address] [address] COMPREHENSIVE METABOLIC [id number] 07:45:00* Test Item Value Reference Range Comments TOTAL PROTEIN (BEAKER) (test gdkq=382) 7.0 gm/dL 6.0-8.3 Specimen slightly hemolyzed ALBUMIN (BEAKER) (test pjuc=6734) 3.8 g/dL 3.5-5.0 Specimen slightly hemolyzed ALKALINE PHOSPHATASE (BEAKER) (test kbkj=475) 38 U/L 40-150 BILIRUBIN TOTAL (BEAKER) (test adqk=363) 0.7 mg/dL 0.2-1.2 Specimen slightly hemolyzed SODIUM (BEAKER) (test nvhb=369) 134 meq/L 136-145 POTASSIUM (BEAKER) (test ifid=161) 3.9 meq/L 3.5-5.1 Specimen slightly hemolyzed CHLORIDE (BEAKER) (test vlww=500) 101 meq/L 98-107 CO2 (BEAKER) (test sdwl=784) 16 meq/L 22-29 BLOOD UREA NITROGEN (BEAKER) (test awgh=846) 12 mg/dL 7-21 CREATININE (BEAKER) (test kzvp=112) 0.97 mg/dL 0.57-1.25 Specimen slightly hemolyzed GLUCOSE RANDOM (BEAKER) (test jhhu=152) 189 mg/dL 70-105 CALCIUM (BEAKER) (test gpjf=420) 9.2 mg/dL 8.4-10.2 AST (SGOT) (BEAKER) (test wjyq=718) 50 U/L 5-34 Specimen slightly hemolyzed ALT (SGPT) (BEAKER) (test jtka=754) 72 U/L 6-55 Specimen slightly hemolyzed EGFR (BEAKER) (test xuqg=3677) 90 mL/min/1.73 sq m ESTIMATED GFR IS NOT ACCURATE CREATININE CLEARANCE IN PREDICTING GLOMERULAR FILTRATION RATE. ESTIMATED GFR IS NOT APPLICABLE FOR DIALYSIS PATIENTS. Specimen moderately lipemicPOCT-GLUCOSE [id number] 21:45:00* Test Item Value Reference Range Comments POC-GLUCOSE METER (BEAKER) (test rzmf=9104) 183 mg/dL 70-110 TESTED AT [facility] [address] [facility] [address] POCT-GLUCOSE [id number] 18:41:00* Test Item Value Reference Range Comments POC-GLUCOSE METER (BEAKER) (test vetq=6613) 235 mg/dL 70-110 TESTED AT [facility] [address] [facility] [address] HEMOGLOBIN [id number] 17:16:00* Test Item Value Reference Range Comments HEMOGLOBIN A1C (BEAKER) (test ynlw=875) 10.6 % 4.3-6.1 POCT-GLUCOSE [id number] 12:16:00* Test Item Value Reference Range Comments POC-GLUCOSE METER (BEAKER) (test liln=6478) 247 mg/dL 70-110 TESTED AT [facility] [address] [facility] [address] [id number] 10:04:00* Test Item Value Reference Range Comments THYROID STIMULATING HORMONE (BEAKER) (test iyun=218) 2.96 uIU/mL 0.35-4.94 LACTIC ACID, VENOUS, WHOLE [id number] 09:26:00* Test Item Value Reference Range Comments LACTATE BLOOD VENOUS (2) (BEAKER) (test awyf=9670) 1.7 mmol/L 0.5-2.2 Specimen slightly hemolyzed Effective 10/18/2015: Units/Reference Range ChangeNew: 0.5-2.2 mmol/L Previous: 5 -20 mg/dLSpecimen moderately lipemicKETONE, [id number] 09:23:00* Test Item Value Reference Range Comments KETONES, BLOOD (BEAKER) (test xnkf=5166) 0.1 mmol/L <0.4 BLOOD GAS, [id number] 09:12:00* Test Item Value Reference Range Comments PH VENOUS (BEAKER) (test tbtb=072) 7.42 7.32-7.42 PCO2 VENOUS (BEAKER) (test ntgl=621) 38 mmHg 41-51 PO2 VENOUS (BEAKER) (test nbob=162) 78 mmHg 25-40 O2 SATURATION VENOUS (BEAKER) (test bglj=047) 96.2 % 40.0-70.0 HCO3 VENOUS (BEAKER) (test uokg=343) 24 mmol/L 21-29 BASE EXCESS VENOUS (BEAKER) (test kqsu=593) -0.3 mmol/L -2.0-3.0 PATIENT TEMPERATURE (BEAKER) (test neki=1774) 36.3 C FIO2 (BEAKER) (test zjfi=0963) 21.0 % LIPID [id number] 08:26:00* Test Item Value Reference Range Comments TRIGLYCERIDES (BEAKER) (test yyqe=805) 2617 mg/dL Specimen slightly hemolyzed CHOLESTEROL (BEAKER) (test xzzn=348) 380 mg/dL Specimen slightly hemolyzed HDL CHOLESTEROL (BEAKER) (test ektz=603) 24 mg/dL Calculated LDL not valid if triglyceride >400 mg/dLTriglyceride Reference Range: Low Risk <150 Borderline 150-199 High Risk 200-499 Very High Risk >=500Cholesterol Reference Range: Low Risk <200 Borderline 200-239 High Risk >240HDL Cholesterol Reference Range: Low Risk >=60 High Risk <40LDL Cholesterol Reference Range: Optimal <100 Near Optimal 100-129 Borderline 130-159 High 160-189 Very High >=190 Specimen markedly lipemicPOCT-GLUCOSE [id number] 08:19:00* Test Item Value Reference Range Comments POC-GLUCOSE METER (BEAKER) (test jydf=9336) 199 mg/dL 70-110 TESTED AT [facility] [address] [facility] [address] BASIC METABOLIC [id number] 07:18:00* Test Item Value Reference Range Comments SODIUM (BEAKER) (test uyye=589) 132 meq/L 136-145 POTASSIUM (BEAKER) (test aqqr=690) 4.4 meq/L 3.5-5.1 Specimen slightly hemolyzed CHLORIDE (BEAKER) (test cmae=313) 101 meq/L 98-107 CO2 (BEAKER) (test cplf=722) 12 meq/L 22-29 BLOOD UREA NITROGEN (BEAKER) (test fpyq=129) 9 mg/dL 7-21 CREATININE (BEAKER) (test lxxe=374) 0.96 mg/dL 0.57-1.25 Specimen slightly hemolyzed GLUCOSE RANDOM (BEAKER) (test vzjm=212) 216 mg/dL 70-105 CALCIUM (BEAKER) (test iedr=178) 9.2 mg/dL 8.4-10.2 EGFR (BEAKER) (test pucl=0451) 91 mL/min/1.73 sq m ESTIMATED GFR IS NOT ACCURATE CREATININE CLEARANCE IN PREDICTING GLOMERULAR FILTRATION RATE. ESTIMATED GFR IS NOT APPLICABLE FOR DIALYSIS PATIENTS. CBC W/PLT COUNT & AUTO [id number] 06:23:00* Test Item Value Reference Range Comments WHITE BLOOD CELL COUNT (BEAKER) (test yjik=808) 4.8 K/ L 3.5-10.5 RED BLOOD CELL COUNT (BEAKER) (test yaco=065) 4.57 M/ L 4.63-6.08 HEMOGLOBIN (BEAKER) (test ynsz=863) 14.1 GM/DL 13.7-17.5 HEMATOCRIT (BEAKER) (test ilrl=497) 39.4 % 40.1-51.0 MEAN CORPUSCULAR VOLUME (BEAKER) (test qejl=353) 86.2 fL 79.0-92.2 MEAN CORPUSCULAR HEMOGLOBIN (BEAKER) (test hgfl=526) 30.9 pg 25.7-32.2 MEAN CORPUSCULAR HEMOGLOBIN CONC (BEAKER) (test fxbo=297) 35.8 GM/DL 32.3-36.5 RED CELL DISTRIBUTION WIDTH (BEAKER) (test qtpj=573) 12.1 % 11.6-14.4 PLATELET COUNT (BEAKER) (test gljk=551) 221 K/CU MM 150-450 MEAN PLATELET VOLUME (BEAKER) (test cdjp=817) 10.6 fL 9.4-12.4 NUCLEATED RED BLOOD CELLS (BEAKER) (test mdmc=338) 0 /100 WBC 0-0 NEUTROPHILS RELATIVE PERCENT (BEAKER) (test btpu=040) 53 % LYMPHOCYTES RELATIVE PERCENT (BEAKER) (test xqhy=604) 36 % MONOCYTES RELATIVE PERCENT (BEAKER) (test cyzm=406) 7 % EOSINOPHILS RELATIVE PERCENT (BEAKER) (test quhj=371) 3 % BASOPHILS RELATIVE PERCENT (BEAKER) (test blja=601) 0 % NEUTROPHILS ABSOLUTE COUNT (BEAKER) (test gopn=082) 2.54 K/ L 1.78-5.38 LYMPHOCYTES ABSOLUTE COUNT (BEAKER) (test owrq=806) 1.69 K/ L 1.32-3.57 MONOCYTES ABSOLUTE COUNT (BEAKER) (test veop=992) 0.31 K/ L 0.30-0.82 EOSINOPHILS ABSOLUTE COUNT (BEAKER) (test bmic=403) 0.16 K/ L 0.04-0.54 BASOPHILS ABSOLUTE COUNT (BEAKER) (test lhgq=611) 0.02 K/ L 0.01-0.08 IMMATURE GRANULOCYTES-RELATIVE PERCENT (BEAKER) (test lthn=6321) 1 % 0-1 URINALYSIS WITHOUT [id number] 04:31:00* Test Item Value Reference Range Comments COLOR (BEAKER) (test aeon=445) Light Yellow CLARITY (BEAKER) (test hbvt=085) Clear SPECIFIC GRAVITY UA (BEAKER) (test vhrq=687) 1.004 1.001-1.035 PH UA (BEAKER) (test divz=435) 5.5 5.0-8.0 PROTEIN UA (BEAKER) (test ymjn=152) Negative Negative GLUCOSE UA (BEAKER) (test iyqf=596) Negative Negative KETONES UA (BEAKER) (test nfcl=924) Negative Negative BILIRUBIN UA (BEAKER) (test jwru=518) Negative Negative BLOOD UA (BEAKER) (test uzbq=797) Negative Negative NITRITE UA (BEAKER) (test smai=326) Negative Negative LEUKOCYTE ESTERASE UA (BEAKER) (test fatl=938) Negative Negative UROBILINOGEN UA (BEAKER) (test kfic=159) 0.2 mg/dL 0.2-1.0 SOURCE(BEAKER) (test penb=4980) POCT-GLUCOSE [id number] 03:44:00* Test Item Value Reference Range Comments POC-GLUCOSE METER (BEAKER) (test xifv=2380) 214 mg/dL 70-110 TESTED AT [facility] [address] [place] [address] LACTIC ACID, VENOUS, WHOLE [id number] 02:02:00* Test Item Value Reference Range Comments LACTATE BLOOD VENOUS (2) (BEAKER) (test nthb=8649) 2.0 mmol/L 0.5-2.2 Specimen moderately hemolyzed Effective 10/18/2015: Units/Reference Range ChangeNew: 0.5-2.2 mmol/L Previous: 5 -20 mg/dLSpecimen markedly lipemicBLOOD GAS, [id number] 01:14:00* Test Item Value Reference Range Comments PH ARTERIAL (BEAKER) (test xquu=969) 7.40 7.35-7.45 PCO2 ARTERIAL (BEAKER) (test oejf=901) 39 mmHg 35-45 PO2 ARTERIAL (BEAKER) (test tama=879) 83 mmHg 80-90 O2 SATURATION ARTERIAL (BEAKER) (test hutt=330) 96.4 % 96.0-97.0 HCO3 ARTERIAL (BEAKER) (test irxw=941) 24 mmol/L 21-29 BASE EXCESS ARTERIAL (BEAKER) (test egyi=696) -0.8 mmol/L -2.0-3.0 PATIENT TEMPERATURE (BEAKER) (test semc=2221) 36.5 C FIO2 (BEAKER) (test rckd=0449) 21.0 % BASIC METABOLIC [id number] 00:11:00* Test Item Value Reference Range Comments SODIUM (BEAKER) (test ibwr=845) 131 meq/L 136-145 POTASSIUM (BEAKER) (test qrpz=049) 4.0 meq/L 3.5-5.1 Specimen moderately hemolyzed CHLORIDE (BEAKER) (test ntns=839) 101 meq/L 98-107 CO2 (BEAKER) (test fyac=182) 14 meq/L 22-29 BLOOD UREA NITROGEN (BEAKER) (test iqte=460) 10 mg/dL 7-21 CREATININE (BEAKER) (test odgc=677) 0.95 mg/dL 0.57-1.25 Specimen moderately hemolyzed GLUCOSE RANDOM (BEAKER) (test sycq=973) 177 mg/dL 70-105 CALCIUM (BEAKER) (test umah=814) 9.1 mg/dL 8.4-10.2 EGFR (BEAKER) (test wcle=8197) 92 mL/min/1.73 sq m ESTIMATED GFR IS NOT ACCURATE CREATININE CLEARANCE IN PREDICTING GLOMERULAR FILTRATION RATE. ESTIMATED GFR IS NOT APPLICABLE FOR DIALYSIS PATIENTS. KETONE, [id number] 23:59:00* Test Item Value Reference Range Comments KETONES, BLOOD (BEAKER) (test kdxk=3491) 0.1 mmol/L <0.4 BASIC METABOLIC [id number] 20:33:00* Test Item Value Reference Range Comments SODIUM (BEAKER) (test argx=365) 130 meq/L 136-145 POTASSIUM (BEAKER) (test mopm=871) 4.0 meq/L 3.5-5.1 Specimen slightly hemolyzed CHLORIDE (BEAKER) (test fzgz=790) 100 meq/L 98-107 CO2 (BEAKER) (test kjok=703) 14 meq/L 22-29 BLOOD UREA NITROGEN (BEAKER) (test izhr=212) 11 mg/dL 7-21 CREATININE (BEAKER) (test usnc=104) 1.02 mg/dL 0.57-1.25 Specimen slightly hemolyzed GLUCOSE RANDOM (BEAKER) (test guuk=177) 274 mg/dL 70-105 CALCIUM (BEAKER) (test qeup=923) 9.5 mg/dL 8.4-10.2 EGFR (BEAKER) (test czvy=6705) 85 mL/min/1.73 sq m ESTIMATED GFR IS NOT ACCURATE CREATININE CLEARANCE IN PREDICTING GLOMERULAR FILTRATION RATE. ESTIMATED GFR IS NOT APPLICABLE FOR DIALYSIS PATIENTS. POCT-GLUCOSE [id number] 16:46:00* Test Item Value Reference Range Comments POC-GLUCOSE METER (BEAKER) (test zeow=2814) 201 mg/dL 70-110 TESTED AT [address] [address] HEMOGLOBIN [id number] 14:48:00* Test Item Value Reference Range Comments HEMOGLOBIN A1C (BEAKER) (test nker=371) 10.6 % 4.3-6.1 SODIUM, RANDOM [id number] 12:48:00* Test Item Value Reference Range Comments SODIUM URINE (BEAKER) (test irkk=570) 151 meq/L Reference Range: No NormalsBASIC METABOLIC [id number] 12:46:00* Test Item Value Reference Range Comments SODIUM (BEAKER) (test uswc=154) 132 meq/L 136-145 POTASSIUM (BEAKER) (test rnha=992) 3.7 meq/L 3.5-5.1 Specimen slightly hemolyzed CHLORIDE (BEAKER) (test uupm=517) 102 meq/L 98-107 CO2 (BEAKER) (test gcju=234) 16 meq/L 22-29 BLOOD UREA NITROGEN (BEAKER) (test iimg=162) 9 mg/dL 7-21 CREATININE (BEAKER) (test qeii=406) 0.88 mg/dL 0.57-1.25 Specimen slightly hemolyzed GLUCOSE RANDOM (BEAKER) (test akbn=766) 191 mg/dL 70-105 CALCIUM (BEAKER) (test hnag=947) 9.2 mg/dL 8.4-10.2 EGFR (BEAKER) (test tfak=2099) 101 mL/min/1.73 sq m ESTIMATED GFR IS NOT ACCURATE CREATININE CLEARANCE IN PREDICTING GLOMERULAR FILTRATION RATE. ESTIMATED GFR IS NOT APPLICABLE FOR DIALYSIS PATIENTS. POCT-GLUCOSE [id number] 12:39:00* Test Item Value Reference Range Comments POC-GLUCOSE METER (BEAKER) (test kdbj=8560) 221 mg/dL 70-110 TESTED AT [facility] [address] [facility] [address] POCT-GLUCOSE [id number] 11:44:00* Test Item Value Reference Range Comments POC-GLUCOSE METER (BEAKER) (test hqwg=0363) 168 mg/dL 70-110 TESTED AT [address] [address] BLOOD GAS, [id number] 10:36:00* Test Item Value Reference Range Comments PH VENOUS (BEAKER) (test eidf=643) 7.38 7.32-7.42 PCO2 VENOUS (BEAKER) (test zgdq=460) 43 mmHg 41-51 PO2 VENOUS (BEAKER) (test kszi=805) 37 mmHg 25-40 O2 SATURATION VENOUS (BEAKER) (test rctg=987) 68.6 % 40.0-70.0 HCO3 VENOUS (BEAKER) (test sfrt=440) 25 mmol/L 21-29 BASE EXCESS VENOUS (BEAKER) (test asyx=863) -0.5 mmol/L -2.0-3.0 PATIENT TEMPERATURE (BEAKER) (test lmmi=6327) 37.0 C FIO2 (BEAKER) (test tcqq=6852) 21.0 % POCT-GLUCOSE [id number] 10:30:00* Test Item Value Reference Range Comments POC-GLUCOSE METER (BEAKER) (test wjhe=7123) 206 mg/dL 70-110 TESTED AT [address] [address] CREATINE KINASE (CK), TOTAL AND [id number] 10:30:00* Test Item Value Reference Range Comments CREATINE KINASE TOTAL (BEAKER) (test gymq=748) 67 U/L 29-200 CREATINE KINASE-MB (BEAKER) (test tgpp=454) 0.3 ng/mL 0.0-6.6 CREATINE KINASE-MB INDEX (BEAKER) (test hjeo=001) 0.4 % CK-MB Reference Range:<6.7 Normal6.7-10.0 Borderline>10.0 Abnormal OSMOLALITY, [id number] 10:02:00* Test Item Value Reference Range Comments OSMOLALITY, SERUM (BEAKER) (test rwyy=507) 294 mOsm/kg 275-295 BASIC METABOLIC [id number] 09:30:00* Test Item Value Reference Range Comments SODIUM (BEAKER) (test gdey=339) 132 meq/L 136-145 POTASSIUM (BEAKER) (test gugn=063) 4.1 meq/L 3.5-5.1 Specimen slightly hemolyzed CHLORIDE (BEAKER) (test ztij=766) 102 meq/L 98-107 CO2 (BEAKER) (test zkec=117) 13 meq/L 22-29 BLOOD UREA NITROGEN (BEAKER) (test txdy=646) 10 mg/dL 7-21 CREATININE (BEAKER) (test ergy=727) 0.93 mg/dL 0.57-1.25 Specimen slightly hemolyzed GLUCOSE RANDOM (BEAKER) (test jujr=469) 224 mg/dL 70-105 CALCIUM (BEAKER) (test ffpd=268) 9.1 mg/dL 8.4-10.2 EGFR (BEAKER) (test taol=6805) 95 mL/min/1.73 sq m ESTIMATED GFR IS NOT ACCURATE CREATININE CLEARANCE IN PREDICTING GLOMERULAR FILTRATION RATE. ESTIMATED GFR IS NOT APPLICABLE FOR DIALYSIS PATIENTS. CREATINE KINASE (CK), TOTAL AND [id number] 09:30:00* Test Item Value Reference Range Comments CREATINE KINASE TOTAL (BEAKER) (test kvwm=144) 56 U/L 29-200 CREATINE KINASE-MB (BEAKER) (test cfkr=688) 0.4 ng/mL 0.0-6.6 CREATINE KINASE-MB INDEX (BEAKER) (test xqwt=168) 0.7 % CK-MB Reference Range:<6.7 Normal6.7-10.0 Borderline>10.0 Abnormal TROPONIN [id number] 09:29:00* Test Item Value Reference Range Comments TROPONIN I (BEAKER) (test amsq=452) < ng/mL 0.00-0.03 Troponin I (TnI) levels must be interpreted in the context of the presenting sym ptoms and the clinical findings. Elevated TnI levels indicate myocardial damage, but are not specific for ischemic heart disease. Elevated TnI levels are seen in patients with other cardiac conditions (including myocarditis and congestive h eart failure), and slight TnI elevations occur in patients with other conditions , including sepsis, renal failure, acidosis, acute neurological disease, and per sistent tachyarrhythmia.KETONE, [id number] 09:25:00* Test Item Value Reference Range Comments KETONES, BLOOD (BEAKER) (test wtnv=8757) 0.1 mmol/L <0.4 POCT-GLUCOSE [id number] 09:18:00* Test Item Value Reference Range Comments POC-GLUCOSE METER (BEAKER) (test ywpu=8268) 241 mg/dL 70-110 TESTED AT [address] [address] POCT-GLUCOSE [id number] 08:39:00* Test Item Value Reference Range Comments POC-GLUCOSE METER (BEAKER) (test lbws=1941) 221 mg/dL 70-110 TESTED AT [address] [address] POCT-GLUCOSE [id number] 07:24:00* Test Item Value Reference Range Comments POC-GLUCOSE METER (BEAKER) (test hbzm=3623) 220 mg/dL 70-110 TESTED AT [address] [address] POCT-GLUCOSE [id number] 06:14:00* Test Item Value Reference Range Comments POC-GLUCOSE METER (BEAKER) (test isja=0179) 220 mg/dL 70-110 TESTED AT [address] [address] BASIC METABOLIC [id number] 05:10:00* Test Item Value Reference Range Comments SODIUM (BEAKER) (test nehj=371) 130 meq/L 136-145 POTASSIUM (BEAKER) (test jgvy=392) 3.9 meq/L 3.5-5.1 Specimen slightly hemolyzed CHLORIDE (BEAKER) (test prcc=230) 102 meq/L 98-107 CO2 (BEAKER) (test pybh=335) 11 meq/L 22-29 BLOOD UREA NITROGEN (BEAKER) (test vihy=415) 10 mg/dL 7-21 CREATININE (BEAKER) (test oalh=925) 0.89 mg/dL 0.57-1.25 Specimen slightly hemolyzed GLUCOSE RANDOM (BEAKER) (test nnle=928) 247 mg/dL 70-105 CALCIUM (BEAKER) (test lkkg=552) 8.7 mg/dL 8.4-10.2 EGFR (BEAKER) (test rozc=9085) 100 mL/min/1.73 sq m ESTIMATED GFR IS NOT ACCURATE CREATININE CLEARANCE IN PREDICTING GLOMERULAR FILTRATION RATE. ESTIMATED GFR IS NOT APPLICABLE FOR DIALYSIS PATIENTS. POCT-GLUCOSE [id number] 05:07:00* Test Item Value Reference Range Comments POC-GLUCOSE METER (BEAKER) (test joov=5840) 242 mg/dL 70-110 TESTED AT [facility] [address] [facility] [address] LACTIC ACID, VENOUS, WHOLE [id number] 04:42:00* Test Item Value Reference Range Comments LACTATE BLOOD VENOUS (2) (BEAKER) (test ohga=1640) 2.7 mmol/L 0.5-2.2 Specimen slightly hemolyzed Effective 10/18/2015: Units/Reference Range ChangeNew: 0.5-2.2 mmol/L Previous: 5 -20 mg/dLSpecimen slightly lipemicCBC W/PLT COUNT & AUTO [id number] 04:31:00* Test Item Value Reference Range Comments WHITE BLOOD CELL COUNT (BEAKER) (test wjfg=402) 6.4 K/ L 3.5-10.5 RED BLOOD CELL COUNT (BEAKER) (test xbzr=756) 4.35 M/ L 4.63-6.08 HEMOGLOBIN (BEAKER) (test jsdk=002) 13.5 GM/DL 13.7-17.5 HEMATOCRIT (BEAKER) (test btig=743) 37.8 % 40.1-51.0 MEAN CORPUSCULAR VOLUME (BEAKER) (test prdp=750) 86.9 fL 79.0-92.2 MEAN CORPUSCULAR HEMOGLOBIN (BEAKER) (test aomt=830) 31.0 pg 25.7-32.2 MEAN CORPUSCULAR HEMOGLOBIN CONC (BEAKER) (test tqkw=142) 35.7 GM/DL 32.3-36.5 RED CELL DISTRIBUTION WIDTH (BEAKER) (test tkyn=984) 12.3 % 11.6-14.4 PLATELET COUNT (BEAKER) (test gtix=954) 207 K/CU MM 150-450 MEAN PLATELET VOLUME (BEAKER) (test yomk=751) 10.8 fL 9.4-12.4 NUCLEATED RED BLOOD CELLS (BEAKER) (test lfwb=451) 0 /100 WBC 0-0 NEUTROPHILS RELATIVE PERCENT (BEAKER) (test nwrk=404) 62 % LYMPHOCYTES RELATIVE PERCENT (BEAKER) (test lzly=452) 29 % MONOCYTES RELATIVE PERCENT (BEAKER) (test fvjh=965) 7 % EOSINOPHILS RELATIVE PERCENT (BEAKER) (test gmti=035) 1 % BASOPHILS RELATIVE PERCENT (BEAKER) (test mgnc=297) 0 % NEUTROPHILS ABSOLUTE COUNT (BEAKER) (test mpcu=071) 3.94 K/ L 1.78-5.38 LYMPHOCYTES ABSOLUTE COUNT (BEAKER) (test etza=886) 1.84 K/ L 1.32-3.57 MONOCYTES ABSOLUTE COUNT (BEAKER) (test vmsv=498) 0.44 K/ L 0.30-0.82 EOSINOPHILS ABSOLUTE COUNT (BEAKER) (test daxh=888) 0.09 K/ L 0.04-0.54 BASOPHILS ABSOLUTE COUNT (BEAKER) (test evpe=902) 0.02 K/ L 0.01-0.08 IMMATURE GRANULOCYTES-RELATIVE PERCENT (BEAKER) (test rswy=5820) 1 % 0-1 POCT-GLUCOSE [id number] 04:05:00* Test Item Value Reference Range Comments POC-GLUCOSE METER (BEAKER) (test tair=5397) 247 mg/dL 70-110 TESTED AT [address] [address] POCT-GLUCOSE [id number] 03:08:00* Test Item Value Reference Range Comments POC-GLUCOSE METER (BEAKER) (test wtlc=4815) 246 mg/dL 70-110 TESTED AT [address] [address] LACTIC ACID, VENOUS, WHOLE [id number] 02:40:00* Test Item Value Reference Range Comments LACTATE BLOOD VENOUS (2) (BEAKER) (test bjyq=9971) 2.1 mmol/L 0.5-2.2 Specimen slightly hemolyzed Effective 10/18/2015: Units/Reference Range ChangeNew: 0.5-2.2 mmol/L Previous: 5 -20 mg/dLSpecimen moderately [id number] 02:38:00* Test Item Value Reference Range Comments POTASSIUM (BEAKER) (test wfui=746) 3.9 meq/L 3.5-5.1 Specimen slightly hemolyzed POCT-GLUCOSE [id number] 02:18:00* Test Item Value Reference Range Comments POC-GLUCOSE METER (BEAKER) (test plhk=1573) 232 mg/dL 70-110 TESTED AT [place] [address] [facility] [address] TROPONIN [id number] 01:30:00* Test Item Value Reference Range Comments TROPONIN I (BEAKER) (test mfqs=469) < ng/mL 0.00-0.03 Troponin I (TnI) levels must be interpreted in the context of the presenting sym ptoms and the clinical findings. Elevated TnI levels indicate myocardial damage, but are not specific for ischemic heart disease. Elevated TnI levels are seen in patients with other cardiac conditions (including myocarditis and congestive h eart failure), and slight TnI elevations occur in patients with other conditions , including sepsis, renal failure, acidosis, acute neurological disease, and per sistent tachyarrhythmia.[id number] 01:23:00* Test Item Value Reference Range Comments POTASSIUM (BEAKER) (test ghxn=531) 3.5 meq/L 3.5-5.1 Specimen slightly hemolyzed BASIC METABOLIC [id number] 01:23:00* Test Item Value Reference Range Comments SODIUM (BEAKER) (test ylvx=144) 133 meq/L 136-145 POTASSIUM (BEAKER) (test kpox=440) 3.5 meq/L 3.5-5.1 Specimen slightly hemolyzed CHLORIDE (BEAKER) (test xndb=378) 102 meq/L 98-107 CO2 (BEAKER) (test zezn=741) 13 meq/L 22-29 BLOOD UREA NITROGEN (BEAKER) (test flco=810) 12 mg/dL 7-21 CREATININE (BEAKER) (test cexd=818) 0.90 mg/dL 0.57-1.25 Specimen slightly hemolyzed GLUCOSE RANDOM (BEAKER) (test evfh=294) 126 mg/dL 70-105 CALCIUM (BEAKER) (test qnxv=292) 9.2 mg/dL 8.4-10.2 EGFR (BEAKER) (test hozl=1263) 98 mL/min/1.73 sq m ESTIMATED GFR IS NOT ACCURATE CREATININE CLEARANCE IN PREDICTING GLOMERULAR FILTRATION RATE. ESTIMATED GFR IS NOT APPLICABLE FOR DIALYSIS PATIENTS. POCT-GLUCOSE [id number] 01:01:00* Test Item Value Reference Range Comments POC-GLUCOSE METER (BEAKER) (test tkzl=2640) 169 mg/dL 70-110 TESTED AT [facility] [address] [place] [address] LACTIC ACID, VENOUS, WHOLE [id number] 00:53:00* Test Item Value Reference Range Comments LACTATE BLOOD VENOUS (2) (BEAKER) (test ahtz=9231) 2.0 mmol/L 0.5-2.2 Specimen slightly hemolyzed Effective 10/18/2015: Units/Reference Range ChangeNew: 0.5-2.2 mmol/L Previous: 5 -20 mg/dLSpecimen moderately lipemicPOCT-GLUCOSE [id number] 00:08:00* Test Item Value Reference Range Comments POC-GLUCOSE METER (BEAKER) (test kafg=1558) 107 mg/dL 70-110 TESTED AT [place] [address] [id number] 22:52:00* Test Item Value Reference Range Comments PROCALCITONIN (BEAKER) (test bvkc=5699) 0.17 ng/mL <0.05 SEPSIS RISK (ng/mL)Low: 0.05-0.50Intermediate: 0.51-2.00High: > =2.01POCT-GLUCOSE [id number] 22:41:00* Test Item Value Reference Range Comments POC-GLUCOSE METER (BEAKER) (test urpn=1515) 152 mg/dL 70-110 TESTED AT [place] [address] LACTIC ACID, VENOUS, WHOLE [id number] 22:32:00* Test Item Value Reference Range Comments LACTATE BLOOD VENOUS (2) (BEAKER) (test yqnf=1531) 2.6 mmol/L 0.5-2.2 Specimen slightly hemolyzed Effective 10/18/2015: Units/Reference Range ChangeNew: 0.5-2.2 mmol/L Previous: 5 -20 mg/dLSpecimen markedly [id number] 22:30:00* Test Item Value Reference Range Comments POTASSIUM (BEAKER) (test pzqh=610) 3.6 meq/L 3.5-5.1 Specimen slightly hemolyzed POCT-GLUCOSE [id number] 21:48:00* Test Item Value Reference Range Comments POC-GLUCOSE METER (BEAKER) (test dnlg=5807) 191 mg/dL 70-110 TESTED AT [place] [address] POCT-GLUCOSE [id number] 20:28:00* Test Item Value Reference Range Comments POC-GLUCOSE METER (BEAKER) (test nsyu=5517) 252 mg/dL 70-110 TESTED AT [address] [address] POCT-GLUCOSE [id number] 20:28:00* Test Item Value Reference Range Comments POC-GLUCOSE METER (BEAKER) (test uofu=4055) 263 mg/dL 70-110 TESTED AT [address] [address] BLOOD GAS, [id number] 20:22:00* Test Item Value Reference Range Comments PH VENOUS (BEAKER) (test vfzm=876) 7.38 7.32-7.42 PCO2 VENOUS (BEAKER) (test nfkl=895) 40 mmHg 41-51 PO2 VENOUS (BEAKER) (test sgfw=017) 56 mmHg 25-40 O2 SATURATION VENOUS (BEAKER) (test cyay=205) 88.9 % 40.0-70.0 HCO3 VENOUS (BEAKER) (test qbwo=485) 23 mmol/L 21-29 BASE EXCESS VENOUS (BEAKER) (test twij=430) -1.9 mmol/L -2.0-3.0 PATIENT TEMPERATURE (BEAKER) (test qgcf=3373) 37.0 C FIO2 (BEAKER) (test sxgy=5751) 21.0 % POCT-LACTIC ACID, [id number] 19:44:00* Test Item Value Reference Range Comments POC-LACTIC ACID, VENOUS (BEAKER) (test iikt=7738) 2.2 mmol/L 0.9-1.7 TESTED AT [address] [address] [address], [id number] 19:35:00Reason for exam:->Abdominal painWhat is the patient's sedation requirement?->No SedationFINAL REPORT CT, ABDOMEN \T\ PELVIS, WITH IV CONTRAST INDICATION: Abdominal painRUQ pain, gallstones on OSH US COMPARISON: None TECHNIQUE:Post contrast abdomen and pelvis CT. Coronal and sagittal reformatted images obtained. DOSE REDUCTION: Dose modulation, iterative reconstruction, and/or weight-based adjustment of the mA/kV was utilized to reduce the radiation dose to as low as reasonably achievable. FINDINGS: Lower thorax: Visible airspaces clear. No effusion. Liver: Marked fatty metamorphosis of the liver. Enlarged origin measuring up to 26 cm.Gallbladder and biliary tree: Gallbladder is collapsed, containing hyperattenuating material likely representing stones.Pancreas: No acute fi ndings.Spleen: No acute findingsAdrenal Glands: No acute findings.Kidneys and ur eters: No hydronephrosis or nephrolithiasis.Bladder and reproductive organs: Unr emarkable. Stomach and Duodenum: No significant findings.Small and large intesti ne: Normal calibers. Mural thickening versus underdistention of the colon.Append ix: Normal. Major vascular structures: Normal aortic caliber.Peritoneum and retr operitoneum: No free air, fluid or adenopathy. Skeleton: No acute bony abnor mality.Additional findings: None. IMPRESSION: Cholelithiasis. No CT evidence of cholecystitis. Hepatomegaly and steatosis. Underdistention versus mural thicken ing of the distal colon. The latter circumstance would reflect infectious/inflam matory colitis. Signed: JR Hines Robert MDReport Verified Date/Time: 0 12/16/2017 19:35:20 Reading Location: [address] Reading Room Ashley ctronically signed by: LAURA HINES on 12/16/2017 07:35 PM BASIC METABOLIC [id number] 18:33:00* Test Item Value Reference Range Comments SODIUM (BEAKER) (test qymm=941) 130 meq/L 136-145 POTASSIUM (BEAKER) (test zwpj=627) 4.1 meq/L 3.5-5.1 Specimen slightly hemolyzed CHLORIDE (BEAKER) (test iuvg=020) 100 meq/L 98-107 CO2 (BEAKER) (test xgzd=659) 12 meq/L 22-29 BLOOD UREA NITROGEN (BEAKER) (test onub=513) 13 mg/dL 7-21 CREATININE (BEAKER) (test ksfo=824) 0.95 mg/dL 0.57-1.25 Specimen slightly hemolyzed GLUCOSE RANDOM (BEAKER) (test pwor=446) 272 mg/dL 70-105 CALCIUM (BEAKER) (test ftgj=134) 9.0 mg/dL 8.4-10.2 EGFR (BEAKER) (test lgol=2773) 92 mL/min/1.73 sq m ESTIMATED GFR IS NOT ACCURATE CREATININE CLEARANCE IN PREDICTING GLOMERULAR FILTRATION RATE. ESTIMATED GFR IS NOT APPLICABLE FOR DIALYSIS PATIENTS. URINALYSIS WITH MICROSCOPIC IF [id number] 17:37:00* Test Item Value Reference Range Comments COLOR (BEAKER) (test tddt=728) Light Yellow CLARITY (BEAKER) (test xtbu=039) Clear SPECIFIC GRAVITY UA (BEAKER) (test sjmv=986) 1.023 1.001-1.035 PH UA (BEAKER) (test qnar=864) 5.5 5.0-8.0 PROTEIN UA (BEAKER) (test rqzx=333) Negative Negative GLUCOSE UA (BEAKER) (test vyvf=599) >1000 mg/dL Negative KETONES UA (BEAKER) (test kibt=176) Trace Negative BILIRUBIN UA (BEAKER) (test lfzn=529) Negative Negative BLOOD UA (BEAKER) (test qesk=656) Negative Negative NITRITE UA (BEAKER) (test kvye=261) Negative Negative LEUKOCYTE ESTERASE UA (BEAKER) (test xgsz=927) Negative Negative UROBILINOGEN UA (BEAKER) (test ujnt=103) 0.2 mg/dL 0.2-1.0 SOURCE(BEAKER) (test mfon=5880) TROPONIN [id number] 16:53:00* Test Item Value Reference Range Comments TROPONIN I (BEAKER) (test qukt=176) < ng/mL 0.00-0.03 Troponin I (TnI) levels must be interpreted in the context of the presenting sym ptoms and the clinical findings. Elevated TnI levels indicate myocardial damage, but are not specific for ischemic heart disease. Elevated TnI levels are seen in patients with other cardiac conditions (including myocarditis and congestive h eart failure), and slight TnI elevations occur in patients with other conditions , including sepsis, renal failure, acidosis, acute neurological disease, and per sistent tachyarrhythmia.COMPREHENSIVE METABOLIC [id number] 16:47:00* Test Item Value Reference Range Comments TOTAL PROTEIN (BEAKER) (test abao=510) 8.7 gm/dL 6.0-8.3 Specimen moderately hemolyzed ALBUMIN (BEAKER) (test fqzp=2854) 4.4 g/dL 3.5-5.0 Specimen moderately hemolyzed ALKALINE PHOSPHATASE (BEAKER) (test jpnc=191) 61 U/L 40-150 BILIRUBIN TOTAL (BEAKER) (test zkrs=945) 0.6 mg/dL 0.2-1.2 Specimen moderately hemolyzed SODIUM (BEAKER) (test bdgy=253) 128 meq/L 136-145 POTASSIUM (BEAKER) (test dbtu=178) 4.3 meq/L 3.5-5.1 Specimen moderately hemolyzed CHLORIDE (BEAKER) (test agry=215) 95 meq/L 98-107 CO2 (BEAKER) (test kxcm=704) 13 meq/L 22-29 BLOOD UREA NITROGEN (BEAKER) (test hgew=078) 16 mg/dL 7-21 CREATININE (BEAKER) (test qtrj=855) 1.24 mg/dL 0.57-1.25 Specimen moderately hemolyzed GLUCOSE RANDOM (BEAKER) (test ntrp=322) 398 mg/dL 70-105 CALCIUM (BEAKER) (test chio=767) 9.7 mg/dL 8.4-10.2 AST (SGOT) (BEAKER) (test axil=676) 22 U/L 5-34 Specimen moderately hemolyzed ALT (SGPT) (BEAKER) (test stwe=647) 42 U/L 6-55 Specimen moderately hemolyzed EGFR (BEAKER) (test ktey=5195) mL/min/1.73 sq m INSUFFICIENT CLINICAL DATA TO CALCULATE ESTIMATED GFR. Specimen markedly [id number] 16:46:00* Test Item Value Reference Range Comments MAGNESIUM (BEAKER) (test qxlh=025) 2.6 mg/dL 1.6-2.6 Specimen moderately hemolyzed [id number] 16:46:00* Test Item Value Reference Range Comments LIPASE (BEAKER) (test uauo=923) 63 U/L 8-78 CBC W/PLT COUNT & AUTO [id number] 16:30:00* Test Item Value Reference Range Comments WHITE BLOOD CELL COUNT (BEAKER) (test fixd=859) 8.0 K/ L 3.5-10.5 RED BLOOD CELL COUNT (BEAKER) (test qwfi=902) 4.83 M/ L 4.63-6.08 HEMOGLOBIN (BEAKER) (test daye=366) 15.2 GM/DL 13.7-17.5 HEMATOCRIT (BEAKER) (test cqhm=294) 40.6 % 40.1-51.0 MEAN CORPUSCULAR VOLUME (BEAKER) (test queo=737) 84.1 fL 79.0-92.2 MEAN CORPUSCULAR HEMOGLOBIN (BEAKER) (test kcry=565) 31.5 pg 25.7-32.2 MEAN CORPUSCULAR HEMOGLOBIN CONC (BEAKER) (test cxfx=641) 37.4 GM/DL 32.3-36.5 RED CELL DISTRIBUTION WIDTH (BEAKER) (test tkev=605) 12.0 % 11.6-14.4 PLATELET COUNT (BEAKER) (test gzsx=268) 254 K/CU MM 150-450 MEAN PLATELET VOLUME (BEAKER) (test gfej=086) 11.2 fL 9.4-12.4 NUCLEATED RED BLOOD CELLS (BEAKER) (test ltot=301) 0 /100 WBC 0-0 NEUTROPHILS RELATIVE PERCENT (BEAKER) (test gahd=808) 66 % LYMPHOCYTES RELATIVE PERCENT (BEAKER) (test vjda=579) 25 % MONOCYTES RELATIVE PERCENT (BEAKER) (test hteu=333) 7 % EOSINOPHILS RELATIVE PERCENT (BEAKER) (test kqem=116) 1 % BASOPHILS RELATIVE PERCENT (BEAKER) (test ggeu=474) 1 % NEUTROPHILS ABSOLUTE COUNT (BEAKER) (test wfgm=647) 5.28 K/ L 1.78-5.38 LYMPHOCYTES ABSOLUTE COUNT (BEAKER) (test xtaq=174) 2.02 K/ L 1.32-3.57 MONOCYTES ABSOLUTE COUNT (BEAKER) (test eilv=296) 0.53 K/ L 0.30-0.82 EOSINOPHILS ABSOLUTE COUNT (BEAKER) (test gccr=854) 0.06 K/ L 0.04-0.54 BASOPHILS ABSOLUTE COUNT (BEAKER) (test ciko=820) 0.04 K/ L 0.01-0.08 IMMATURE GRANULOCYTES-RELATIVE PERCENT (BEAKER) (test fzja=3166) 1 % 0-1
--- OUTSIDE RECORDS SUMMARY | 2019-01-13 19:12 | XMS REPORT | Summary of Care ---
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 Allergies, Adverse Reactions, [...]
--- OUTSIDE RECORDS SUMMARY | 2019-01-13 19:12 | XMS REPORT | Summary of Care ---
Author Author [facility] Organization [facility] Address Unknown Phone Unavailable Encounter NATALIE Gallardo(OSIEL) [id number] Date(s): 12/24/17 - 12/24/17 [facility] [address], [address] [place] [address]- [phone] Discharge Disposition: Home or Self Care Attending Physician: Joycelyn Marroquin MD Vital Signs Most recent to 1 oldest [Reference Range]: Height 182.88 cm (12/24/17 2:52 PM) Temperature Oral 98.7 DegF [96.4-99.1 DegF] (12/24/17 2:52 PM) Blood Pressure 145/89 mmHg [90-140/60-90 mmHg] *HI* (12/24/17 2:52 PM) Respiratory Rate 14 BRMIN [14-20 BRMIN] (12/24/17 2:52 PM) Peripheral Pulse 82 bpm Rate [60-100 bpm] (12/24/17 2:52 PM) Weight 120.966 kg (12/24/17 2:52 PM) Body Mass Index 36.17 m2 (12/24/17 2:52 PM) Problem List Condition Effective Dates Status [...] Type II on August 18, 2017 16:29:17 FIELD RECORDER with order ID: [id number] entered by Joycelyn Marroquin. Allergies, Adverse Reactions, Alerts Substance Reaction Severity Status NKDA Active Medications atorvastatin 40 mg oral tablet 40 mg=1 tab, PO, Bedtime, # 90 tab, 1 Refill(s) Start Date: 12/24/17 Stop Date: 06/22/18 Status: Ordered atorvastatin 40 mg oral tablet 40 mg=1 tab, PO, Bedtime, # 90 tab, 1 Refill(s) Start Date: 12/24/17 Stop Date: 12/24/17 Status: Discontinued DME Addition #1 See Instructions, LANCETS TO CHECK HIS SUGARS FOUR TIMES A DAY ONE TOUCH, # 30 0 ea, 3 Refill(s) Start Date: 12/24/17 Status: Ordered fenofibrate 150 mg oral capsule 150 mg=1 cap, PO, Daily, # 90 cap, 1 Refill(s) Start Date: 12/24/17 Stop Date: 06/22/18 Status: Ordered lisinopril 20 mg oral tablet 20 mg=1 tab, PO, Daily, # 90 tab, 1 Refill(s) Start Date: 12/24/17 Stop Date: 12/24/17 Status: Discontinued lisinopril 20 mg oral tablet 20 mg=1 tab, PO, Daily, # 90 tab, 1 Refill(s) Start Date: 12/24/17 Stop Date: 06/22/18 Status: Ordered NovoLOG PenFill 100 units/mL subcutaneous solution 5 unit, SUB-Q, TID, Before meals, # 7 ea, 1 Refill(s) Start Date: 12/24/17 Stop Date: 06/22/18 Status: Ordered Tresiba FlexTouch 200 units/mL subcutaneous solution 20 unit, SUB-Q, Daily, 0 Refill(s) Start Date: 12/24/17 Status: Ordered Vascepa 2 gm, PO, BID, 0 Refill(s) Start Date: 12/24/17 Status: Ordered Results No data available for [...] Reg Smoking Cessation Counseling No entered on: 12/24/17 Assessment and Plan No data available for this section
--- OUTSIDE RECORDS SUMMARY | 2019-01-13 19:12 | XMS REPORT | Summary of Care ---
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 Allergies, Adverse Reactions, [...]
[2019-01-13] MEDS ORDERED: SODIUM CHLORIDE 0.9% 1000ML 1,000 ML IV STA ×2 (20:27→21:56)
[2019-01-13] MEDS ORDERED: DICYCLOMINE HCL 20 MG/2 ML VIAL IM ONE (20:30)
[2019-01-13 20:46] LABS: BILIRUBIN,URINE MODERATE (NEGATIVE); CLARITY,URINE SL CLOUDY (CLEAR); COLOR,URINE YELLOW (YELLOW); LEUKOCYTE ESTERASE ,URINE NEGATIVE (NEGATIVE); NITRITE,URINE NEGATIVE (NEGATIVE); PROTEIN,URINE DIPSTICK 2+ (NEGATIVE); URINE UROBILINOGEN 0.2 mg/dL (0.2 - 1)
[2019-01-13 20:47] LABS: KETONES,URINE 2+ (NEGATIVE)
[2019-01-13 20:48] LABS: BASOPHILS % 0.2 % (0.0-1.0); EOSINOPHILS # (AUTO) 0.1 (0.0-0.4); EOSINOPHILS % 0.8 % (0.0-6.0); HEMATOCRIT 40.3 % (38.2-49.6); LYMPHOCYTES # (AUTO) 1.7 (1.0-3.2); LYMPHOCYTES % 14.6 % (18.0-39.1); MEAN CORPUSCULAR HEMOGLOBIN 31.8 pg (28-32); MEAN CORPUSCULAR HGB CONC 37.2 g/dL (31-35); MEAN CORPUSCULAR VOLUME 85.4 fL (81-99); MONOCYTES # (AUTO) 0.8 (0.2-0.8); MONOCYTES % 6.5 % (4.4-11.3); NEUTROPHILS # (AUTO) 8.9 (2.1-6.9); NEUTROPHILS % 77.1 % (38.7-80.0); PLATELET COUNT 222 x10e3/uL (140-360); RED BLOOD COUNT 4.72 x10e6/uL (4.3-5.7); RED CELL DISTRIBUTION WIDTH 12.3 % (11.7-14.4)
[2019-01-13 20:59] LABS: INR 0.85; PROTHROMBIN TIME 12.1 seconds (11.9-14.5)
[2019-01-13 21:00] LABS: PARTIAL THROMBOPLASTIN TIME 34.2 seconds (23.8-35.5)
[2019-01-13 21:07] LABS: AMORPHOUS SEDIMENT,URINE MODERATE (FEW); BACTERIA,URINE MODERATE /HPF; EPITHELIAL CELLS,URINE FEW /LPF; HYALINE CASTS 0-1 (0-1); WBC,URINE (MAN) 0-5 /HPF (0-5)
[2019-01-13 21:10] LABS: ALANINE AMINOTRANSFERASE 27 IU/L (0-55); ALBUMIN 3.8 g/dL (3.5-5.0); ALBUMIN/GLOBULIN RATIO 0.8 (0.8-2.0); ALKALINE PHOSPHATASE 57 IU/L (40-150); BLOOD UREA NITROGEN 9 mg/dL (7-26); BUN/CREATININE RATIO 9 (6-25); CALCIUM 10.2 mg/dL (8.4-10.2); CARBON DIOXIDE 14 mmol/L (22-29); CHLORIDE 94 mmol/L (98-107); CREATINE KINASE 100 IU/L (30-200); EST GLOMERULAR FILTRATION RATE > 60 ML/MIN (60-); GLUCOSE 241 mg/dL (74-118); LIPASE 63 U/L (8-78); SODIUM 130 mmol/L (136-145)
[2019-01-13] MEDS ORDERED: ONDANSETRON HCL INJ 2MG/ML 2ML 2 MG/ML VIAL IV ONE (21:30)
[2019-01-13] MEDS ORDERED: MORPHINE SULFATE INJ 4 MG/ML INJ 1ML IV ONE (21:30)
[2019-01-13] MEDS ORDERED: INSULIN REGULAR, HUMAN 100 UNIT/1 ML 3ML VIAL IV ONE (22:15)
[2019-01-13] MEDS ORDERED: SODIUM CHLORIDE 0.9% 1000ML 1,000 ML ONE (22:25)
[2019-01-13] MEDS ORDERED: SODIUM CHLORIDE 0.9% 50ML 50 ML ONE (22:36)
[2019-01-13] MEDS ORDERED: IOPAMIDOL 370 MG/ML 200 ML INFUS..BTL INJ ONE (22:36)
[2019-01-13 23:57] LABS: ANION GAP 23.4 mmol/L (8-16); BLOOD UREA NITROGEN 8 mg/dL (7-26); BUN/CREATININE RATIO 10 (6-25); CALCIUM 8.9 mg/dL (8.4-10.2); CARBON DIOXIDE 13 mmol/L (22-29); CHLORIDE 98 mmol/L (98-107); CREATININE, SERUM 0.82 mg/dL (0.72-1.25); EST GLOMERULAR FILTRATION RATE > 60 ML/MIN (60-); GLUCOSE 198 mg/dL (74-118); POTASSIUM 3.4 mmol/L (3.5-5.1); SODIUM 131 mmol/L (136-145)
[2019-01-14] VITALS (21 sets, daily range): BP systolic 124–158; BP diastolic 68–97
--- NOTE | 2019-01-14 00:09 | Diagnostic Imaging Report ---
EXAM: CT Abdomen and Pelvis WITH contrast INDICATION: Abdominal pain nausea vomiting diarrhea COMPARISON: None. TECHNIQUE: Abdomen and pelvis were scanned utilizing a multidetector helical scanner from the lung base to the pubic symphysis after administration of IV contrast. Coronal and sagittal reformations were obtained. Routine protocol was performed. Scan was performed when during portal venous phase. IV CONTRAST: 100 mL of Isovue 370 ORAL CONTRAST: Water COMPLICATIONS: None RADIATION DOSE: Total DLP: 916 mGy*cm Estimated effective dose: (DLP x 0.015 x size factor) mSv CTDIvol has been reviewed. It is below the limits set by the Radiation Protocol Committee (RPC). Dose modulation, iterative reconstruction, and/or weight based adjustment of the mA/kV was utilized to reduce the radiation dose to as low as reasonably achievable. FINDINGS: LINES and TUBES: None. LOWER THORAX: Unremarkable HEPATOBILIARY: Diffuse decreased hepatic attenuation. The liver is enlarged, measures 26 cm in craniocaudal dimension at the right midclavicular line. No focal hepatic lesions. No biliary ductal dilation. GALLBLADDER: There are cholecystectomy clips. SPLEEN: Mild splenomegaly, measures 13.9 cm in cranial caudal dimension. PANCREAS: Mild thickening of the pancreatic tail with trace peripancreatic fat stranding at the pancreatic head and tail. ADRENALS: No adrenal nodules KIDNEYS/URETERS: Kidneys enhance symmetrically. No hydronephrosis. No cystic or solid mass lesions. No stones. GI TRACT: No abnormal distention, wall thickening, or evidence of bowel obstruction. Appendix is not clearly identified. There is however no fat stranding or adenopathy in the right lower quadrant to suggest appendicitis. PELVIC ORGANS/BLADDER: Unremarkable. LYMPH NODES: Slightly prominent portal lymph nodes. VESSELS: Unremarkable. PERITONEUM / RETROPERITONEUM: No free air or fluid. BONES: Unremarkable. SOFT TISSUES: There a small left fat containing inguinal hernia. IMPRESSION: 1. Findings of mild acute interstitial/edematous pancreatitis at the pancreatic tail and pancreatic head. 2. Hepatosplenomegaly with hepatic steatosis. Signed by: Kendell Wills DO on 01/14/2019 12:06 AM
[2019-01-14] MEDS ORDERED: TRESIBA SC (00:24)
[2019-01-14] MEDS ORDERED: ANTARA PO (00:24)
[2019-01-14] MEDS ORDERED: ATORVASTATIN CA10 MG PO (00:24)
[2019-01-14] MEDS ORDERED: METFORMIN HCL500 MG PO (00:24)
[2019-01-14] MEDS ORDERED: INSULIN REGULAR, HUMAN 3ML VL 1 UNIT in SODIUM CHLORIDE 0.9% 100 ML IV SCH ×2 (00:30)
[2019-01-14] MEDS ORDERED: ONDANSETRON HCL INJ 2MG/ML 2ML 2 MG/ML VIAL IV PRN (00:30)
[2019-01-14] MEDS ORDERED: HYDROMORPHONE 2MG/ML 2 MG/ML ML IV PRN (00:30)
[2019-01-14] MEDS ORDERED: HYDRALAZINE HCL 20 MG/ML VIAL IV PRN (00:30)
[2019-01-14] MEDS ORDERED: POTASSIUM CHLORIDE 20MEQ/100ML 200 ML IV PRN ×2 (00:30→13:00)
[2019-01-14] MEDS ORDERED: MAGNESIUM SULF 1GRAM/DEXTROSE 100 ML IV PRN ×2 (00:30→13:00)
[2019-01-14] MEDS ORDERED: DIPHENHYDRAMINE HCL INJ 50 MG/ML VIAL IV PRN (00:30)
[2019-01-14 00:32] LABS: ABG HCO3 19 mmol/L (23-28); ABG PCO2 32 mmHg (41-51); ABG PH 7.38 (7.31-7.41); ABG PO2 99 mmHg (80-105)
--- OUTSIDE RECORDS SUMMARY | 2019-01-14 00:52 | XMS REPORT | Clinical Summary ---
Author Author [facility] Address Unknown Phone Unavailable Care Team Providers Care Can Slider Name Role Phone PCP Unavailable Allergies No [...] total) diabetes mellitus treated subcutaneousl with insulin ([facility]) y 3 (three) times daily before meals. Active needles, insulin Inject 1 1 box 11 disposable (INSULIN PEN Syringe 8 NEEDLES) NdleIndications: subcutaneousl Type 2 diabetes mellitus y 4 (four) treated with insulin times daily. ([facility]) Active lancets MiscIndications: Use as 200 each 4 Type 2 diabetes mellitus directed to 8 treated with insulin check blood ([facility]) sugar.. Active blood sugar diagnostic Check blood 200 strip 4 (ONETOUCH ULTRA TEST) sugar five 8 StrpIndications: Type 2 times daily diabetes mellitus treated as directed.. with insulin ([facility]) Active insulin degludec 100 Inject 20 2 Syringe 2 unit/mL (3 mL) Units 8 InPnIndications: Type 2 subcutaneousl diabetes mellitus treated y daily. with insulin ([facility]) Active atorvastatin (LIPITOR) 40 Take 1 tablet 90 tablet 3 MG tabletIndications: (40 mg total) 8 Type 2 diabetes mellitus by mouth treated with insulin nightly. ([facility]), Dyslipidemia Active omega-3 fatty acids-fish Take 2 0 oil 340-1,000 mg Cap per capsules (2 g 8 capsuleIndications: total) by Hypertriglyceridemia mouth 2 (two) times daily. 12/19/2018 blood-glucose meter Use as 1 each 0 (GLUCOSE MONITORING KIT) instructed. 8 kitIndications: Type 2 diabetes mellitus treated with insulin ([facility]) Active Problems Problem Noted Date Hypertriglyceridemia 12/19/2017 [...] Not on file Results Not on fileafter 01/13/2018 Insurance Payer Benefit Subscriber ID Type Phone Address Plan / Group [employer]UE [employer] BCBS PPO xxxxxxxxxxxx PPO [phone] [address] [place] [address] CHOICE Advance Directives For more information, please contact: [facility] [address] [place] [address] Date Inactivated Comments Code Status Date Activated 12/19/2017 1:23 PM Full Code 12/16/2017 8:01 PM This code status was determined by: Patient
--- OUTSIDE RECORDS SUMMARY | 2019-01-14 00:52 | XMS REPORT | Clinical Summary ---
Author Author Yaakov [facility] Organization [place] [facility] Address Unknown Phone Unavailable Care Team Providers Care Completions Manager Name Role Phone Asked, No Pcp PCP [...] Ketosis (HCC) 01/13/2019 Emergency Emergency Medicine after 01/13/2018 Social History Date Tobacco Use Types Packs/Day [...] METABOLIC STAT 01/13/2019 PANEL 1:40 PM CDT HC COMPLETE BLD COUNT STAT 01/13/2019 W/AUTO DIFF 1:40 PM CDT URINALYSIS SCREEN AND STAT 01/13/2019 MICROSCOPY, WITH REFLEX 1:27 PM CDT TO CULTURE URINE CULTURE STAT 01/13/2019 1:27 PM CDT after 01/13/2018 Results * Beta hydroxybutyrate (01/13/2019 3:07 PM CDT) Beta 3.54 (H) 0.02 - 0.27 mmol/L [facility] Specimen Blood Performing Organization Address City/State/Zipcode Phone Number [facility] [address] [place] [address] PATHOLOGY AND GENOMIC MEDICINE [facility] [address] [place] [address] HOSPITAL * Venous blood gas (01/13/2019 3:07 PM CDT) Annual Giving Director [id number] [facility] O2 therapy ROOM [facility] pH, venous 7.344 7.320 - 7.420 units [facility] pCO2, venous 45.9 45.0 - 51.0 mmHg [facility] pO2, venous 16.4 (L) 25.0 - 40.0 mmHg [facility] O2 saturation, 24.8 (LL) 40.0 - 70.0 % [place] venous Comment: CHRISTIANITY Results called to and read WARBA back by [facility] (name/location) at01/13/2019 15:16 (date/time) by [facility]. Base excess, -0.7 -2.0 - 2.0 mEq/L [place] venous [facility] Bicarbonate 25.0 21.0 - 28.0 mEq/L [facility] O2 content 5.3 VOL% [facility] FiO2, inspired 21.0 % [place] O2% [facility] Carboxyhemoglob 1.5 (H) 0.0 - 1.4 % [place] in Comment: CHRISTIANITY Reference Ranges: WARBA Carboxyhemoglobin [facility] Non smoker: 0.0 - 2.0% Smoker: 2.1 - 5.0% Heavy smoker: 5.1 - 9% Methemoglobin 1.3 (H) 0.0 - 1.0 % [facility] Hemoglobin, 15.7 14.0 - 18.0 g/dL [place] blood gas [facility] Specimen Blood Performing Organization Address City/[facility] Phone Number [facility] [address] [place] [phone] PATHOLOGY AND GENOMIC MEDICINE [address] * Estimated GFR (01/13/2019 1:40 PM CDT) Estimated GFR >=90 mL/min/1.73 m2 [place] Comment: CHRISTIANITY [facility] G1 >=90 Normal or high G2 60-89Mildly decreased [id number] Mildly to moderately decreased [id number] Moderately to severely decreased G4 15-29Severely decreased G5 <15Kidney failure The eGFR was calculated using the Chronic Kidney Disease Epidemiology Collaboration (CKD-EPI) equation. Interpretation is based on recommendations of the National Kidney Foundation-Kidney Disease Outcomes Quality Initiative (NKF-KDOQI) published in 2014. Specimen Plasma specimen Narrative Performed At SPECIMEN >4+ LIPEMIA HAD TO BE ULTRACENTRIFUGED [facility] AND GENOMIC MEDICINE Performing Organization Address City/State/Zipcode Phone Number [facility] [address] [place] [address] PATHOLOGY AND GENOMIC MEDICINE [address] [place] [address] HOSPITAL * CBC with platelet and differential (01/13/2019 1:40 PM CDT) WBC 12.1 (H) 4.2 - 11.0 k/uL [facility] RBC 4.86 4.04 - 5.86 m/uL [facility] HGB 15.6 13.0 - 17.3 g/dL [facility] HCT 42.3 34.0 - 45.0 % [facility] MCV 87.0 80.0 - 98.0 fL [facility] MCH 32.1 27.0 - 34.0 pg [facility] MCHC 36.9 (H) 31.5 - 36.5 g/dL [facility] RDW - SD 39.0 37.0 - 51.0 fL [facility] MPV 11.6 (H) 7.4 - 10.4 fL [facility] Platelet count 246 150 - 400 k/uL [facility] Nucleated RBC 0.00 /100 WBC [facility] Neutrophils 80.3 (H) 36.0 - 66.0 % [facility] Lymphocytes 12.1 (L) 24.0 - 44.0 % [facility] Monocytes 6.1 (H) 0.0 - 6.0 % [facility] Eosinophils 0.5 0.0 - 6.0 % [facility] Basophils 0.3 0.0 - 1.2 % [facility] Immature 0.7 0.0 - 1.0 % [place] granulocytes [facility] Specimen Blood Performing Organization Address City/State/Zipcode Phone Number [facility] [address] [place] [address] PATHOLOGY AND GENOMIC MEDICINE [address] * Lipase level (01/13/2019 1:40 PM CDT) Pathologist [facility] Lipase 74 (H) 13 - 60 U/L [facility] Specimen Plasma specimen Narrative Performed At SPECIMEN >4+ LIPEMIA HAD TO BE ULTRACENTRIFUGED [facility]Y AND GENOMIC MEDICINE Performing Organization Address City/State/Zipcode Phone Number [facility] [address] [place] [address] PATHOLOGY AND GENOMIC MEDICINE [address] [place] [address] HOSPITAL * Comprehensive metabolic panel (01/13/2019 1:40 PM CDT) Sodium 132 (L) 135 - 150 mEq/L [facility] Potassium 4.2 3.5 - 5.0 mEq/L [facility] Chloride 91 (L) 98 - 112 mEq/L [facility] CO2 18 (L) 24 - 31 mmol/L [facility] Anion gap 23@ANIO (H) 7 - 15 mEq/L [facility] BUN 9 7 - 18 mg/dL [facility] Creatinine 0.80 0.70 - 1.20 mg/dL [facility] Glucose 259 (H) 65 - 100 mg/dL [facility] Calcium 10.4 (H) 8.3 - 10.2 mg/dL [facility] Protein 8.4 (H) 6.3 - 8.3 g/dL [facility] Albumin 4.0 3.5 - 5.0 g/dL [facility] A/G ratio 0.9 0.7 - 3.8 [facility] Alkaline 62 0 - 129 U/L [place] phosphatase [facility] AST 30 10 - 50 U/L [facility] ALT 27 5 - 50 U/L [facility] Total bilirubin 0.9 0.2 - 1.2 mg/dL [facility] Specimen Plasma specimen Narrative Performed At SPECIMEN >4+ LIPEMIA HAD TO BE ULTRACENTRIFUGED [facility]Y AND GENOMIC MEDICINE Performing Organization Address City/State/Zipcode Phone Number [place] [address] [place] [address] PATHOLOGY AND GENOMIC MEDICINE [facility] [address] [place] [address] HOSPITAL * Urinalysis screen and microscopy, with reflex to culture (01/13/2019 1:27 PM CDT) Specimen site Clean catch [facility] Color, UA Yellow [facility] Appearance, UA Clear [facility] Specific 1.036 (H) 1.001 - 1.035 [place] gravity, [facility] pH, UA 6.0 5.0 - 8.5 [facility] Protein, UA 2+ (A) Negative [facility] Glucose, UA 3+ (A) Negative [facility] Ketones, UA 2+ (A) Negative [facility] Bilirubin, UA Negative Negative [facility] Blood, UA Negative Negative [facility] Nitrite, UA Negative Negative [facility] Urobilinogen, Negative <2.0 [facility] Leukocyte Negative Negative [place] [facility] WBC, UA 1 0 - 1 /HPF [facility] RBC, UA 3 0 - 5 /HPF [facility] Bacteria, UA None seen None seen [facility] Yeast, UA None seen [facility] Yeast with None seen [place] pseud[facility]yphaeMETHODIST [facility] Granular casts, 3 (H) 0 - 1 /LPF [facility] Specimen Urine Performing Organization Address City/State/Zipcode Phone Number [place] [phone] [place] [phone] PATHOLOGY AND GENOMIC MEDICINE [place] [address] [place] [address] HOSPITAL * Urine culture (01/13/2019 1:27 PM CDT) Urine culture SEE COMMENTComment: [place] Bacteriuria screen negative. [facility] Specimen Urine Performing Organization Address City/[facility]/Zipcode Phone Number [facility] [place] [address] [address] [place] [phone] PATHOLOGY AND GENOMIC MEDICINE [facility] [address] [place] [phone] HOSPITAL after 01/13/2018 Insurance Type Payer Benefit Subscriber ID Effective Phone Address Plan / Dates Group POS AETNA AETNA xxxxxxxxxx 2019- [place] Present [facility] POS Advance Directives Patient has advance care planning documents on file. For more information, elmira [place] contact: Yaakov Ch [address] [place] [address]
--- OUTSIDE RECORDS SUMMARY | 2019-01-14 00:52 | XMS REPORT | Continuity of Care Document ---
Author Author [facility] Organization [facility] Address Unknown Phone Unavailable Care Team Providers Care Auctioneer Art Name Role Phone Anthill Information PDV Unavailable Unavailable Problems Problem Status Onset Date Classification Date Reported Comments Source E11.42 TYPE 2 DIABETES MELLITUS WITH ANGELITO Active 12/29/2017 [facility] Benign essential HTN Active Problem 11/29/2018 [facility] Low serum vitamin D Active Problem 11/29/2018 [facility] DM type 2 with diabetic peripheral neuropathy Active Problem 11/29/2018 [facility] Hyperlipidemia, mixed Active Problem 11/29/2018 [facility] Obesity Active Problem 11/29/2018 [facility] Thyroid disorder screen Active Problem 11/29/2018 [facility] Diabetes mellitus type 21 Active Problem 11/29/2018 Automatically added by Discern Expert with order of Add Problem Diabetes Type II on August 18, 2017 16:29:17 [employer]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 [facility] Hemorrhoids Active Problem 11/29/2018 [facility] Upper respiratory infection, viral Active Problem 11/29/2018 [facility] Hospital discharge follow-up Active Problem 11/29/2018 [facility] Medications Medication Details Route Status Patient Instructions Ordering Provider Order Date Source glimepiride 2 mg oral tablet =1 tab, PO, BID, # 180 tab, Refill(s) 1, Pharmacy: [facility] [id number] [facility] Active 06/30/2018 [facility] atorvastatin 10 mg oral tablet 10 mg=1 tab, PO, Bedtime, # 90 tab, 1 Refill(s), Pharmacy: [facility] [id number] [facility] Active 04/10/2018 [facility] Fenofibrate 90 MG Oral Capsule 90 mg=1 cap, PO, Daily, # 90 cap, 1 Refill(s), Pharmacy: [facility] [id number] [facility] Active 04/10/2018 [facility] Metformin hydrochloride 1000 MG Oral Tablet 1,000 mg=1 tab, PO, BID-Meals, # 180 tab, 1 Refill(s) Active 04/10/2018 [facility] Mini-Pen [place] Ultra Fine 3/16 in, 31 gauge See Instructions, 4 boxes with 90 needles each box He injects 4 times a day with Tresiba Pen and Novolog Pen, # 4 box, 1 Refill(s) Active 01/02/2018 [facility] Insulin Syringes U 30 31 ga (ultra fine) 1 syr, INJ, QID- Before Meals, FOR NOVOLOG PEN AND TRESIBA PEN, # 360 syr, 1 Refill(s) Inactive 01/02/2018 [facility] glimepiride 2 mg oral tablet 2 mg=1 tab, PO, BID, # 180 tab, 1 Refill(s), Pharmacy: [place] [id number] [place] [facility] No Longer Active 01/02/2018 [facility] DME Addition #1 See Instructions, LANCETS TO CHECK HIS SUGARS FOUR TIMES A DAY ONE TOUCH, # 300 ea, 3 Refill(s) Active 12/24/2017 [facility] 3 ML Insulin, Aspart, Human 100 UNT/ML Cartridge [NovoLog] 5 unit, SUB-Q, TID, Before meals, # 7 ea, 1 Refill(s) Active 12/24/2017 [facility] lisinopril 20 mg oral tablet 20 mg=1 tab, PO, Daily, # 90 tab, 1 Refill(s) Active 12/24/2017 [facility] atorvastatin 40 mg oral tablet 40 mg=1 tab, PO, Bedtime, # 90 tab, 1 Refill(s) Active 12/24/2017 [facility] Fenofibrate 150 MG Oral Capsule 150 mg=1 cap, PO, Daily, # 90 cap, 1 Refill(s) Active 12/24/2017 [facility] lisinopril 20 mg oral tablet 20 mg=1 tab, PO, Daily, # 90 tab, 1 Refill(s) Inactive 12/24/2017 [facility] atorvastatin 40 mg oral tablet 40 mg=1 tab, PO, Bedtime, # 90 tab, 1 Refill(s) Inactive 12/24/2017 [facility] Vascepa 2 gm, PO, BID, 0 Refill(s) Active 12/24/2017 [facility] 3 ML insulin degludec 200 UNT/ML Pen Injector [Tresiba] 20 unit, SUB-Q, Daily, 0 Refill(s) Active 12/24/2017 [facility] Fenofibrate 160 MG Oral Tablet See Instructions, # 90 tab, TAKE 1 TABLET BY MOUTH DAILY, Pharmacy: [facility] [id number] [facility] Active 09/03/2017 [facility] Hemorrhoidal HC 25 mg rectal suppository 25 mg=1 supp, RI, BID, X 7 day, # 14 supp, 0 Refill(s) No Longer Active 08/18/2017 [facility] Mineral Oil 0.14 MG/MG / Petrolatum 0.719 MG/MG / Phenylephrine Hydrochloride 0.0025 MG/MG Rectal Ointment 1 appl, RI, BID, X 7 day, # 57 gm, 1 Refill(s) No Longer Active 08/18/2017 [facility] Hydrochlorothiazide 25 MG Oral Tablet 25 mg=1 tab, PO, Daily, # 90 tab, 1 Refill(s), [id number] Active 07/30/2017 [facility] benzonatate 200 mg oral capsule 200 mg=1 cap, PO, TID, X 10 day, # 30 cap, 0 Refill(s), Pharmacy: [facility]/pharmacy #[id number] No Longer Active 07/30/2017 [facility] ibuprofen 800 mg oral tablet 800 mg=1 tab, PO, Q8H, PRN Pain, Take with food, X 10 day, # 30 tab, 0 Refill(s), Pharmacy: [facility]/pharmacy #[id number] No Longer Active 07/30/2017 [facility] Glipizide 10 MG Oral Tablet 10 mg=1 tab, PO, BID-Before Meals, # 180 tab, 1 Refill(s), Pharmacy: [facility]/pharmacy #[id number] Active 07/30/2017 [facility] lisinopril 40 mg oral tablet 40 mg=1 tab, PO, Daily, # 90 tab, 1 Refill(s), Pharmacy: [facility]/pharmacy #[id number] Active 05/16/2017 [facility] Ergocalciferol 95864 UNT Oral Capsule 50,000 IntlUnit=1 cap, PO, Q-M and W, # 24 cap, 2 Refill(s), Pharmacy: [facility]/pharmacy #[id number] Active 05/16/2017 [facility] lisinopril 10 mg oral tablet 10 mg=1 tab, PO, Daily, # 90 tab, 1 Refill(s), [id number] Inactive 05/16/2017 [facility] metFORMIN 1000 mg oral tablet, extended release 1,000 mg=1 tab, PO, BID, # 180 tab, 1 Refill(s), [id number] Active 05/16/2017 [facility] Fenofibrate 160 MG Oral Tablet 160 mg=1 tab, PO, Daily, # 90 tab, 1 Refill(s), [id number] Active 05/16/2017 [facility] icosapent ethyl 1000 MG Oral Capsule [Vascepa] 2 gm=2 cap, PO, BID, # 360 cap, 1 Refill(s), [id number] Active 05/16/2017 [facility] Allergies, Adverse Reactions, Alerts Substance Category Reaction Severity Reaction type Status Date Reported Comments Source No Known Medication Allergies Assertion Drug allergy [facility] Immunizations Immunization Date Given Site Status Last Updated Comments Source influenza virus vaccine, inactivated<sup>1</sup> 04/10/2018 Right Deltoid completed [place] Result Comment: Patient waited 15 min with no reaction. [facility] influenza virus vaccine, inactivated 05/06/2017 Left Deltoid completed [facility] influenza virus vaccine, inactivated 04/19/2016 Right Deltoid completed [facility] Results No Data Provided for This Section Pathology Reports No Data Provided for This Section Diagnostic Reports No Data Provided for This Section Consultation Notes No Data Provided for This Section Discharge Summaries No Data Provided for This Section History and Physicals No Data Provided for This Section Vital Signs Vital Sign Value Date Comments Source BMI Calculated 37.37 05/11/2018 [facility] Weight 125 05/11/2018 [facility] Systolic (mm Hg) 134 05/11/2018 [facility] Diastolic (mm Hg) 92 05/11/2018 [facility] Height 182.88 cm 05/11/2018 [facility] Respitory Rate 16 05/11/2018 [facility] Heart Rate 85 05/11/2018 [facility] Height 182.88 cm 04/10/2018 [facility] Weight 121.818 04/10/2018 [facility] BMI Calculated 36.42 04/10/2018 [facility] Temperature Oral (F) 98.3 F [...] ADM Date DC Date Status Source Outpatient [id number] JOYCELYN STOCKTON 04/19/2016 Active [facility] Outpatient [id number] JOYCELYN STOCKTON 04/26/2016 Active [facility] Outpatient [id number] JOYCELYN STOCKTON 05/30/2016 Active [facility] Outpatient [id number] JOYCELYN STOCKTON 08/02/2016 Active [facility] Outpatient [id number] JOYCELYN STOCKTON 11/01/2016 Active [facility] Outpatient [id number] JOYCELYN STOCKTON 02/21/2017 Active [facility] Outpatient [id number] JOYCELYN STOCKTON 05/06/2017 Active [facility] Primary Care [facility] Outpatient [id number] Joycelyn Buchanan 05/06/2017 05/07/2017 [facility] Outpatient [id number] JOYCELYN STOCKTON 05/16/2017 Active [facility] Primary Care [facility] Outpatient [id number] Joycelyn Buchanan 05/16/2017 05/17/2017 [facility] Outpatient [id number] JOE RIOS 06/06/2017 Active [facility] Urology [facility] Ambulatory Pre-Reg [id number] Joe Rios 06/06/2017 06/06/2017 [facility] Outpatient [id number] JOYCELYN STOCKTON 07/30/2017 Active [facility] Primary Care [facility] Outpatient [id number] Joycelyn Buchanan 07/30/2017 07/31/2017 [facility] Outpatient [id number] JOYCELYN STOCKTON 08/18/2017 Active [facility] Primary Care [facility] Outpatient [id number] Joycelyn Buchanan 08/18/2017 08/19/2017 [facility] Primary [facility] Phone Message [id number] 08/19/2017 08/21/2017 [facility] Outpatient [id number] JOYCELYN STOCKTON 09/12/2017 Active [facility] Primary Care [facility] Ambulatory Pre-Reg [id number] Joycelyn Buchanan 09/12/2017 09/12/2017 [facility] Outpatient [id number] JOE WARNERANDER 12/05/2017 Active [facility] Urology [facility] Ambulatory Pre-Reg [id number] Joe Warnerander 12/05/2017 12/05/2017 [facility] Outpatient [id number] JOYCELYN STOCKTON 12/24/2017 Active [facility] Primary Care [facility] Outpatient [id number] Joycelyn Buchanan 12/24/2017 12/25/2017 [facility] Outpatient [id number] JOYCELYN STOCKTON 12/25/2017 Active [facility] Primary Care [facility] Ambulatory Pre-Reg [id number] Joycelyn Buchanan 12/25/2017 12/25/2017 [facility] Outpatient [id number] JOYCELYN STOCKTON 01/02/2018 Active [facility] Primary Care [facility] Outpatient [id number] Joycelyn Buchanan 01/02/2018 01/03/2018 [facility] [id number] Joycelyn Buchanan 01/16/2018 01/16/[address] [facility] Outpatient [id number] JOYCELYN STOCKTON 04/10/2018 Active [facility] Primary Care [facility] Outpatient [id number] Joycelyn Buchanan 04/10/2018 04/11/2018 [facility] Outpatient [id number] JOYCELYN STOCKTON 05/06/2018 Active [facility] Ambulatory Pre-Reg [id number] Joycelyn Avilesshanelopez Buchanan 05/06/2018 05/06/2018 [facility] Outpatient [id number] JOYCELYN AVILESJOHAN 05/11/2018 Active [facility] Outpatient [id number] Joycelyn Buchanan 05/11/2018 05/12/2018 [facility] Outpatient [id number] JOYCELYN MAHIN 08/07/2018 [facility] Procedures Procedure Code Date Perfomer Comments Source Diabetic retinopathy screening<sup>1</sup> [id number] 12/14/2016 No retinopathy [facility] Diabetic retinopathy screening<sup>1</sup> [id number] 12/14/2016 No retinopathy [facility] Cholecystectomy [id number] [facility] Cholecystectomy [id number] [facility] Assessment and Plan No Data Provided for [...] Cessation Counseling No entered on: 05/11/18 08/02/2016 [facility] Social History TypeResponse Substance Abuse Use: [...] Cessation Counseling No entered on: 05/11/18 08/02/2016 [facility] Family History No Data Provided for This Section Advance Directives No Data Provided for This Section Functional Status No Data Provided for This Section
[2019-01-14] MEDS: DEXTROSE 5%/0.45% SOD CHL 1,000 ML IV SCH ×4 (01:00→20:59)
[2019-01-14] MEDS: SODIUM CHLORIDE 0.9% 1000ML 1,000 ML IV SCH ×4 (01:11→12:20)
--- NOTE | 2019-01-14 01:20 | NUR ---
RECEIVED FROM ER VIA STRETCHER, AAAOX3, AT BEDSIDE. INSULIN INFUSING PER PUMP AT 10 U/HR PER DKA PROTOCOL, D5-1/2NS AT 100 ML/HR
[2019-01-14] MEDS ORDERED: PNEUMOCOCCAL VACCINE POLYVALENT 23 MCG/0.5 ML VIAL IM SCH (01:33)
--- NOTE | 2019-01-14 02:20 | NUR ---
D5-1/2NS DECREASED TO 75 ML/HR PER DKA PROTOCOL
[2019-01-14 05:39] LABS: ANION GAP 20.2 mmol/L (8-16); BLOOD UREA NITROGEN 7 mg/dL (7-26); BUN/CREATININE RATIO 9 (6-25); CALCIUM 9.2 mg/dL (8.4-10.2); CARBON DIOXIDE 16 mmol/L (22-29); CHLORIDE 101 mmol/L (98-107); CREATININE, SERUM 0.79 mg/dL (0.72-1.25); EST GLOMERULAR FILTRATION RATE > 60 ML/MIN (60-); GLUCOSE 161 mg/dL (74-118); POTASSIUM 3.2 mmol/L (3.5-5.1); SODIUM 134 mmol/L (136-145)
[2019-01-14 08:39] LABS: ANION GAP 19.3 mmol/L (8-16); BLOOD UREA NITROGEN 6 mg/dL (7-26); BUN/CREATININE RATIO 8 (6-25); CALCIUM 9.4 mg/dL (8.4-10.2); CARBON DIOXIDE 17 mmol/L (22-29); CHLORIDE 102 mmol/L (98-107); CREATININE, SERUM 0.75 mg/dL (0.72-1.25); EST GLOMERULAR FILTRATION RATE > 60 ML/MIN (60-); GLUCOSE 124 mg/dL (74-118); MAGNESIUM 1.9 MG/DL (1.3-2.1); POTASSIUM 3.3 mmol/L (3.5-5.1); SODIUM 135 mmol/L (136-145)
[2019-01-14] MEDS ORDERED: ACETAMINOPHEN 325 MG TAB ONE (09:13)
[2019-01-14] MEDS: FAMOTIDINE 20 MG/2 ML VIAL IV SCH ×2 (09:17→17:49)
[2019-01-14] MEDS ORDERED: INSULIN REGULAR, HUMAN 3ML VL 100 UNIT in SODIUM CHLORIDE 0.9% 99 ML IV SCH ×4 (09:30)
[2019-01-14] MEDS ORDERED: ACETAMINOPHEN 325 MG TAB PO PRN (09:45)
[2019-01-14 12:24] LABS: ANION GAP 16.2 mmol/L (8-16); BLOOD UREA NITROGEN 6 mg/dL (7-26); BUN/CREATININE RATIO 8 (6-25); CALCIUM 9.2 mg/dL (8.4-10.2); CARBON DIOXIDE 19 mmol/L (22-29); CHLORIDE 102 mmol/L (98-107); CREATININE, SERUM 0.72 mg/dL (0.72-1.25); EST GLOMERULAR FILTRATION RATE > 60 ML/MIN (60-); GLUCOSE 118 mg/dL (74-118); MAGNESIUM 1.9 MG/DL (1.3-2.1); POTASSIUM 3.2 mmol/L (3.5-5.1); SODIUM 134 mmol/L (136-145)
[2019-01-14] MEDS: POTASSIUM CHLORIDE 20MEQ/100ML 100 ML IV PRN (13:45)
[2019-01-14] MEDS ORDERED: INSULIN REGULAR, HUMAN 3ML VL 100 UNIT in SODIUM CHLORIDE 0.45% 100 ML 100 ML IV SCH ×2 (14:20)
[2019-01-14] MEDS ORDERED: HYDROMORPHONE 1MG/1ML INJ IV PRN (14:30)
[2019-01-14] MEDS ORDERED: DEXTROSE 50% SYRINGE 50 ML IV PRN (14:30)
[2019-01-14 14:58] LABS: CHOL/HDL RATIO 16.1 (3.9-4.7); CHOLESTEROL 338 MD/DL (0-199); HDL CHOLESTEROL 21 MG/DL (40-60); TRIGLYCERIDES 1287 MG/DL (0-149)
[2019-01-14 15:23] LABS: FREE T4 (FREE THYROXINE) 0.85 ng/dL (0.8-1.8); THYROID STIMULATING HORMONE 2.336 uIU/mL (0.350-4.940)
[2019-01-14] MEDS ORDERED: SODIUM CHLORIDE 0.9% 1000ML 1,000 ML IV SCH (15:33)
[2019-01-14] MEDS: ATORVASTATIN 10 MG TAB PO SCH (20:59)
[2019-01-14] MEDS ORDERED: INSULIN GLARGINE 100 UNITS/ML VIAL SQ SCH (21:00)
[2019-01-14] MEDS ORDERED: FENOFIBRATE 145 MG TAB PO SCH (21:00)
--- NOTE | 2019-01-14 21:31 | History and Physical ---
REPORT TITLE: Endocrine consultation BODY AFTER REPORT TITLE: The patient of Dr. Burdick HISTORY OF PRESENT ILLNESS: This is a 33-year-old gentleman, who is referred to me for evaluation and management of uncontrolled diabetes mellitus and diabetic ketoacidosis. The patient came to the hospital with history of nausea and vomiting. On further evaluation, his blood sugars were significantly elevated in 300-400 range and his anion gap was 26. The patient has had diabetes for almost 4-5 years and had recurrent episodes of diabetic ketoacidosis in the past along with pancreatitis and hyperlipidemia. According to the patient, he was taking NovoLog insulin 3 times a day and Tarceva 20-30 units once a day. Recently, his doctor about 4-5 months stopped the NovoLog and put him on receive Tarceva only along with the metformin. The patient also has history of hyperlipidemia, for which he is supposed to be on fenofibrate. He does have a strong family history of diabetes mellitus. PHYSICAL EXAMINATION: GENERAL: Today, the patient is alert, awake, little bit apprehensive. He is moderately overweight. VITAL SIGNS: His heart rate is around 100. Blood pressure is 130/80 mmHg. HEENT: Essentially unremarkable. NECK: Thyroid is palpable. Clinically he is near euthyroid. CHEST: Bilateral vesicular breathing. No rales. CARDIOVASCULAR: First and second heart sounds. There are no third or fourth heart sounds, with systolic grade 2/6. ABDOMEN: The patient has mild tenderness in the epigastric area. 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 IMPRESSION: 1. Diabetes mellitus type 2, uncontrolled with complications. 2. Mild diabetic ketoacidosis. 3. Hyperlipidemia, rule out acute pancreatitis. PLAN: At this time is to continue the insulin drip. Start him on the Lantus insulin also at bedtime, and also we will do hemoglobin A1c and lipid profile and start him on fenofibrate as well. Thank you for referring this patient. I will be following this patient with you. MD DIANA Soliman/CJ /[id number]
[2019-01-15] VITALS (13 sets, daily range): BP systolic 121–145; BP diastolic 73–94
--- NOTE | 2019-01-15 00:53 | History and Physical ---
CHIEF COMPLAINT: Abdominal pain, nausea, vomiting, found to be in DKA. HISTORY OF PRESENT ILLNESS: A 33-year-old male, known history of type 2 diabetes, currently on Tresiba; morbid obesity, and also underlying hyperlipidemia, presents to the ED with complaints of underlying abdominal pain, nausea, and vomiting. The patient endorsed that he is very noncompliant with his diabetic medications. Of note, he is very noncompliant with his diet as well. He reported having some abdominal pain, nausea, vomiting, and not feeling well with underlying diaphoresis for the last several days. He does follow up with the primary care physician and he was supposed to be seeing an ethnographer, but he was actually uninsured at that time and he was unable to follow up with his ethnographer. The patient is currently in the ICU under his DKA protocol. Endocrinology was consulted accordingly. The patient is currently doing well with no complaints. He is on IV fluids. Diet will be initiated. REVIEW OF SYSTEMS: 1. Pertinent positives: Abdominal pain, nausea, and vomiting. 2. Pertinent negatives: Denies any chest pain, palpitation, dysuria, hematuria, frequency, urgency, lightheadedness, dizziness, cough, congestion, fever, or any other complaints. The rest of 14-point review of systems have been reviewed with the patient and are negative. ALLERGIES: NO KNOWN DRUG ALLERGIES. HOME MEDICATIONS: He is currently on: 1. Tresiba 20 units subcu daily. 2. Antara 90 mg daily. 3. Metformin 1000 mg p.o. b.i.d. 4. Lipitor 10 mg daily. PAST MEDICAL HISTORY: Type 2 diabetes, morbid obesity, and hyperlipidemia. PAST SURGICAL HISTORY: None. FAMILY HISTORY: Hypertension and diabetes. SOCIAL HISTORY: No drugs and no alcohol. Does not smoke. Good social support. He is . PHYSICAL EXAMINATION: VITAL SIGNS: Temperature is 98.3, pulse 81, respiratory rate 21, blood pressure 138/93, pulse ox 99% on room air. GENERAL: Not in acute distress. Alert and oriented x3. Cooperative on examination. HEENT: Head is normocephalic and atraumatic. Eyes; pupils are equal, round, and reactive to light bilaterally. Extraocular movements are intact bilaterally. Throat, no evidence of erythema or exudates in the posterior pharynx. Has poor dentition. NECK: Supple. Good range of motion. PULMONARY: Clear to auscultation bilaterally. No wheezing, no rales, no rhonchi, no crackles appreciated. CARDIOVASCULAR: Positive S1 and S2. No murmurs, rubs, or gallops appreciated. ABDOMEN: Soft, nontender, and nondistended to palpation. Bowel sounds present. MUSCULOSKELETAL: Strength is 5/5 throughout. No evidence of any muscles deficits on examination. No weakness appreciated. NEUROLOGICAL: Cranial nerves II through XII grossly intact. No evidence of any neurological deficits on exam. SKIN: Intact. Warm to touch. Good cap refill. PSYCHIATRIC: Normal affect and mood. EXTREMITIES: No edema. Good range of motion throughout. LABORATORY FINDINGS: Show white count 11.5, hemoglobin 15, hematocrit 40, platelets of 222, PT 12, INR 0.85. Chemistry; sodium 134, potassium 3.2, chloride 102, bicarb 19, anion gap of 16, BUN 6, creatinine 0.72, glucose 119, calcium 9.2, magnesium 1.9, and total bilirubin is 1. LFTs were normal. Troponins were negative. Triglycerides 1287. LDL is not measurable. TSH was 2.3. Hemoglobin A1c was 11.1. Lipase level 63. Urinalysis showed 2+ protein, 2+ ketones, and 2+ glucose. Microbiology, urine cultures still pending. No growth. IMAGING STUDIES: CT abdomen and pelvis shows findings of mild to acute interstitial edematous pancreatitis at the pancreatic cell and pancreatic head. Hepatosplenomegaly and hepatic steatosis. IMPRESSION: 1. Diabetic ketoacidosis. 2. Abdominal pain with nausea, vomiting, and dehydration. 3. Acute pancreatitis. 4. Hypertriglyceridemia. 5. Hepatic steatosis. PLAN: At this time, he is on a DKA protocol, being monitored and evaluated by Dr. Jarquin, Endocrinology. He is on IV fluids, insulin drip. He is on antinausea medication. He is on a full liquid diet. We are going to repeat labs in the morning including a lipase level. We are going to go ahead and add TriCor for his hypertriglyceridemia. His abdominal pain improved. He is on antinausea medication as well as pain control. I had a long discussion with the patient about diet compliance as well as insulin compliance as well. The patient will be started on long-acting insulin as well as premeal insulin as well. We will also give him some diabetic education. I spent more than 35 minutes of critical care time on this case. The patient is currently in the ICU. MD ZAINA Quintanilla/CJ /[id number]
--- NOTE | 2019-01-15 01:11 | NUR ---
Report received from LUZ MARIA Glover. Patient sleeping on his bed. No respiratory distress noted. Bed in lower position,locked Bed alarm on. V/S WNL. Will continue to monitor.
--- NOTE | 2019-01-15 02:33 | Consultation ---
DATE OF CONSULTATION: 01/14/2019 HISTORY OF PRESENT ILLNESS: The patient is 33-year-old, who presented to the hospital because of abdominal pain. It has been in the epigastric area along with some nausea and vomiting. The patient apparently was found to have acute pancreatitis along with DKA. His . He does not have any history of alcohol abuse and he is post cholecystectomy. He did have a CAT scan done last night, which shows a fatty liver with hepatosplenomegaly and acute pancreatitis. PAST MEDICAL PROBLEM: Significant for history of diabetes. ALLERGIES: NONE. SOCIAL HISTORY: Denies any alcohol use. FAMILY HISTORY: Noncontributory. REVIEW OF SYSTEMS: At this point denies any chest pain. Denies any shortness of breath. Denies any dysphagia or odynophagia. Denies any dysuria, hematuria, or any kind of syncopal episode. PHYSICAL EXAMINATION: GENERAL: The patient is awake and alert, appears to be stable and not in acute distress at this point. VITAL SIGNS: Afebrile. Currently without vital signs. HEAD, EYES, EARS, NOSE, AND THROAT: Normocephalic, atraumatic. Anicteric are anicteric. NECK: Supple. HEART: Regular. LUNGS: Clear. ABDOMEN: Soft. There is no distention at this point. There is mild . No rebound or mass. EXTREMITIES: No cyanosis. No clubbing. LAB VALUES: This morning, potassium 3.2 . CBC was okay yesterday. CAT scan of the abdomen . IMPRESSION: 1. Acute pancreatitis, likely secondary to hypertriglyceridemia. 2. History of diabetes. 3. Diabetic ketoacidosis. RECOMMENDATION: Continue current care at this point and follow labs. Kaiden Villatoro MD DHD/MODL /[id number] cc: Mya Burdick MD Dr.
[2019-01-15] MEDS: DEXTROSE 5%/0.45% SOD CHL 1,000 ML IV SCH ×2 (04:19→14:55)
[2019-01-15 05:03] LABS: BASOPHILS % 0.4 % (0.0-1.0); EOSINOPHILS # (AUTO) 0.2 (0.0-0.4); EOSINOPHILS % 3.7 % (0.0-6.0); HEMATOCRIT 37.3 % (38.2-49.6); LYMPHOCYTES # (AUTO) 1.4 (1.0-3.2); MEAN CORPUSCULAR HGB CONC 34.9 g/dL (31-35); MEAN CORPUSCULAR VOLUME 86.1 fL (81-99); MONOCYTES # (AUTO) 0.5 (0.2-0.8); MONOCYTES % 10.3 % (4.4-11.3); NEUTROPHILS # (AUTO) 2.9 (2.1-6.9); NEUTROPHILS % 56.6 % (38.7-80.0); PLATELET COUNT 193 x10e3/uL (140-360); RED BLOOD COUNT 4.33 x10e6/uL (4.3-5.7); RED CELL DISTRIBUTION WIDTH 12.6 % (11.7-14.4)
[2019-01-15 05:31] LABS: ANION GAP 15.4 mmol/L (8-16); BLOOD UREA NITROGEN 5 mg/dL (7-26); BUN/CREATININE RATIO 6 (6-25); CALCIUM 9.2 mg/dL (8.4-10.2); CARBON DIOXIDE 20 mmol/L (22-29); CHLORIDE 103 mmol/L (98-107); CREATININE, SERUM 0.82 mg/dL (0.72-1.25); EST GLOMERULAR FILTRATION RATE > 60 ML/MIN (60-); GLUCOSE 251 mg/dL (74-118); LIPASE 38 U/L (8-78); POTASSIUM 3.4 mmol/L (3.5-5.1); SODIUM 135 mmol/L (136-145)
[2019-01-15 06:00] LABS: CHOL/HDL RATIO 15.3 (3.9-4.7); CHOLESTEROL 321 MD/DL (0-199); HDL CHOLESTEROL 21 MG/DL (40-60); TRIGLYCERIDES 1015 MG/DL (0-149)
--- NOTE | 2019-01-15 07:07 | NUR ---
REPORT GIVEN TO COMING NURSE RADHA. WALKING ROUND DONE.
[2019-01-15] MEDS: FENOFIBRATE 145 MG TAB PO SCH (08:23)
[2019-01-15] MEDS: FAMOTIDINE 20 MG/2 ML VIAL IV SCH ×2 (08:23→18:27)
[2019-01-15] MEDS ORDERED: INSULIN LISPRO 100 UNIT/1 ML 3ML VIAL SQ ONE (14:00)
--- NOTE | 2019-01-15 14:25 | NUR ---
Nutrition Screen Note RD Recommendation for Physician: -Rec advancing diet to ADA 2000/ low fat as medically appropriate -RD provided education on diabetic/ low fat diet; rec outpatient diabetes management Plan of Care: RD following, monitoring for tolerance and adequacy, diet education Nutrition reason for involvement: Diagnosis Primary Diagnose(s): DKA, pancreatitis PMH: Type 2 diabetes, morbid obesity, and hyperlipidemia. Ht: 72in Wt: 277.03lb BMI: 37.6kg/m2 IBW: 178lb +/- 10% RD Assessment: (01/15) Chart reviewed. Labs and meds reviewed. 33yo M, who was admitted for DKA. HbA1c at 11.1%. Visited pt in the room. Pt reported good tolerance with full liquid diet. Pt was not compliant with meds and diet because he lost his insurance a few months ago. Pt was receptive to diet education. All questions have been answered. Current Diet: full liquid Malnutrition Evaluation (01/15/2019) The patient does not meet criteria for a specified degree of malnutrition at this time. Will re-evaluate at follow-up as appropriate. Diet Education Needs Assessment: Diet education indicated, pt was agreeable. Learner(s): pt Time spent: 30mins Barriers: No barriers identified. Cultural/Language Modifications: No cultural/language modifications noted. Pt speaks Bengali. Readiness: Pt eager to learn. Method: Handouts, explanation Topics: Carbohydrate exchanges, Carbohydrate counting handouts, Reading the nutrition label, meal planning tips, exercise tips, servings/portion sizes, S/S of hypo & hyperglycemia, low fat diet Understanding/Compliance: Expect good understanding/compliance from pt. Will benefit from reinforcement. Nutrition Care Level: low Signed: Marla Martin, MS, RD, LD
[2019-01-15] MEDS: POTASSIUM CHLORIDE 20MEQ/100ML 100 ML IV PRN (15:13)
[2019-01-15] MEDS: INSULIN LISPRO 100 UNIT/1 ML 3ML VIAL SQ SCH ×5 (16:30→21:06)
--- NOTE | 2019-01-15 19:00 | NUR ---
received reports from previous shift, patient is on bed, family on bed side. awake alert oriented, no distress noted and denied any discomfort. Potassium IV just finished, now running IV fluid. will continue to monitor.
[2019-01-15] MEDS ORDERED: INSULIN GLARGINE 100 UNITS/ML VIAL SQ SCH (21:00)
--- NOTE | 2019-01-15 21:01 | Progress Note ---
DATE: 01/15/2019 Internal Medicine Progress Note SUBJECTIVE: The patient continues to be on the insulin drip on the DKA protocol. He is being managed by Endocrinology. He is currently doing well, tolerating diet with no complaints. He is starting on some subcutaneous insulin later today. PHYSICAL EXAMINATION: VITAL SIGNS: Temperature is 98.3, pulse 72, respiratory rate is 18, blood pressure 135/88, and pulse ox 98% on room air. GENERAL: Not in acute distress. Alert and oriented x3. Cooperative on examination. HEENT: Head; normocephalic, atraumatic. Eyes; pupils are equal, round, and reactive to light bilaterally. Extraocular movements intact bilaterally. Throat; no evidence of erythema or exudates in the posterior pharynx. Has poor dentition. NECK: Supple. Good range of motion. PULMONARY: Clear to auscultation bilaterally. No wheezing, rhonchi, or crackles appreciated. CARDIOVASCULAR: Positive S1 and S2. No murmurs, rubs, or gallops appreciated. ABDOMEN: Soft, nondistended, and nontender to palpation. Bowel sounds present. MUSCULOSKELETAL: Strength is 5/5 throughout. No evidence of any muscle deficits on examination. No weakness appreciated. NEUROLOGIC: Cranial nerves II through XII grossly intact. No evidence of any neurological deficits on exam. SKIN: Intact. Warm to touch. Good cap refill. PSYCHIATRIC: Normal affect and mood. EXTREMITIES: No edema. Good range of motion throughout. LABORATORY FINDINGS: Show white count is 5, hemoglobin 13, hematocrit is 37, and platelets of 193. Chemistry; sodium 135, potassium 3.4, chloride 103, bicarb of 20, anion gap of 15, BUN is 5, creatinine is 0.82, glucose 251, and calcium is 9.2. LDL was not measurable. Triglycerides are 1015. MICROBIOLOGY: Urine cultures were negative. IMAGING STUDIES: None. IMPRESSION: 1. Diabetic ketoacidosis. 2. Abdominal pain with nausea, vomiting, and dehydration. 3. Acute pancreatitis. 4. Hypertriglyceridemia. 5. Hepatic steatosis. PLAN: At this time, he continues to be on insulin drip on DKA protocol, being managed by Endocrinology. GI is following for the acute pancreatitis. He was started on some subcutaneous insulin and our goal is to wean him off the insulin drip today. Continue with TriCor for hypertriglyceridemia. He is to exercise on his diet. I had a long discussion about weight loss and diabetic education with him at bedside. Discussed overall plan with the nursing staff. Electrolytes were replaced. Spent more than 35 minutes of critical care time on this case. The patient is currently in the ICU. MD ZAINA Quintanilla/CJ /[id number]
[2019-01-15] MEDS: ATORVASTATIN 10 MG TAB PO SCH (21:12)
[2019-01-16] MEDS: DEXTROSE 5%/0.45% SOD CHL 1,000 ML IV SCH (04:22)
[2019-01-16 04:28] VITALS: BP 130/76
[2019-01-16 06:10] LABS: ANION GAP 16.6 mmol/L (8-16); BLOOD UREA NITROGEN 7 mg/dL (7-26); BUN/CREATININE RATIO 8 (6-25); CALCIUM 9.2 mg/dL (8.4-10.2); CARBON DIOXIDE 21 mmol/L (22-29); CHLORIDE 103 mmol/L (98-107); CREATININE, SERUM 0.87 mg/dL (0.72-1.25); EST GLOMERULAR FILTRATION RATE > 60 ML/MIN (60-); GLUCOSE 227 mg/dL (74-118); MAGNESIUM 1.9 MG/DL (1.3-2.1); POTASSIUM 3.6 mmol/L (3.5-5.1); SODIUM 137 mmol/L (136-145)
[2019-01-16 08:00] VITALS: BP_SYST 123; BP_SYST 130; BP_DIAS 76; BP_DIAS 80
[2019-01-16] MEDS: FAMOTIDINE 20 MG/2 ML VIAL IV SCH (08:00)
[2019-01-16] MEDS: FENOFIBRATE 145 MG TAB PO SCH (08:00)
[2019-01-16] MEDS: INSULIN LISPRO 100 UNIT/1 ML 3ML VIAL SQ SCH ×4 (08:00→11:34)
[2019-01-16 11:30] VITALS: BP 130/85
--- NOTE | 2019-01-16 13:30 | NUR ---
pt alert resp even and unlabored at this time no distress noted, pt able to make needs known, call light in reach. pt oriented to room and call light.
[2019-01-16] MEDS ORDERED: INSULIN LISPRO 100 UNIT/1 ML 3ML VIAL SQ SCH (16:30)
[2019-01-16 17:27] VITALS: BP 128/67
--- NOTE | 2019-01-16 18:50 | NUR ---
pt discharged home, pt and family member educated on his prescription and , both verbalized understanding, iv sites removed no swelling no redness to site. 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
[2019-01-16] MEDS ORDERED: INSULIN GLARGINE 100 UNITS/ML VIAL SQ SCH (21:00)
--- NOTE | 2019-01-17 00:55 | Discharge Summary ---
FINAL DISCHARGE DIAGNOSES: 1. Diabetic ketoacidosis, improved. 2. Abdominal pain, nausea, vomiting, and dehydration secondary to #1. 3. Acute pancreatitis. 4. Hypertriglyceridemia. 5. Hepatic steatosis. CONSULTANTS: We had Endocrinology and GI. PHYSICAL EXAMINATION: VITAL SIGNS: Temperature is 97.9, pulse 70, respiratory rate 17, blood pressure 130/85, and pulse ox 98% on room air. LAB FINDINGS: Show white count 5, hemoglobin 13, hematocrit 37, and platelets of 193. Chemistry; sodium 137, potassium 3.6, chloride 103, bicarb 21, anion gap of 16, BUN 7, creatinine 0.87, glucose 169, magnesium 1.9, calcium is 9.2, total bilirubin is 1, AST 16, AST is 27, albumin is 3.8. Troponins were negative. Lipase was 38. LDL was unmeasurable, triglyceride level was 1015, TSH is 2.3. Urinalysis; 2+ protein, 2+ glucose, 2+ ketones. MICROBIOLOGY: Urine culture negative. IMAGING STUDIES: CT abdomen and pelvis shows findings of mild acute interstitial edematous pancreatitis of the pancreatic tail and pancreatic head. Hepatosplenomegaly, hepatic steatosis. HOSPITAL COURSE: This is a 33-year-old male, morbidly obese with known type 2 diabetes, comes into the ED with complaints of abdominal pain, nausea, vomiting, found to be in a DKA. The patient was admitted in the ICU, started on DKA protocol, in which Endocrinology was consulted. The patient was managed accordingly by Endocrinology. The patient was eventually discharged on Tresiba insulin long-acting as well as premeal NovoLog. The patient's gap closed and he was converted from insulin drip to insulin subcutaneous. He was on IV fluids as well. His abdominal pain, nausea, and vomiting resolved. CT imaging was consistent with pancreatitis acutely. He also was found to have elevated triglycerides greater than 1000. He was started on TriCor as well. GI was consulted, recommended just medical management. The patient is cleared for discharge by both Endocrinology and GI. On the day of discharge, vital signs were stable, labs reviewed and stable. The patient was seen, evaluated, and examined thoroughly on the day of discharge, no other complaints. The patient verbalized understanding and agreed to plan of care to followup appointment as an outpatient with the primary care physician in 1 week and Endocrinology in 2 weeks' time. MEDICATIONS: See med reconciliation form. DISPOSITION: Home. CONDITION: Stable. DIET: Heart healthy. In the event of any worsening symptoms, the patient was advised to come back to the ED for further evaluation. Discharge summary took greater than 35 minutes. MD ZAINA Quintanilla/MODPeewee /[id number]
== END 2019-01-16 18:49 | disposition home or self-care (01) | DRG 438 ==
LOC: ER 19:08 → ERHOLD 01-14 00:50 → ICU 01-14 01:24 → MED/SURG2 01-16 13:35
PROVIDERS: ADMIT Internal Medicine; ATTEND Internal Medicine
DX: K85.90 Acute pancreatitis without necrosis or infection, unspecified (principal); E10.10 Type 1 diabetes mellitus with ketoacidosis without coma; R11.2 Nausea with vomiting, unspecified; E78.1 Pure hyperglyceridemia; K76.0 Fatty (change of) liver, not elsewhere classified; E78.5 Hyperlipidemia, unspecified; E11.40 Type 2 diabetes mellitus with diabetic neuropathy, unspecified; Z79.4 Long term (current) use of insulin; E86.0 Dehydration
CPT/HCPCS: 36415; 36600; 74177; 80048; 80053; 80061; 81001; 82550; 82553; 82805; 82948; 83036; 83690; 83735; 84439; 84443; 84484; 85025; 85610; 85730; 87086; 96372; 99284; J0500; J1815; J1817; J2270; J2405; J3480; J7030; J7050; Q9967